=== PATIENT | female | born 1955 | race Caucasian/White ===

== ENCOUNTER 2020-05-04 07:14 | Outpatient (CLI) | payer OTHER, SELFPAY ==
--- NOTE | ~2020-05-04 | XR_ITS ---
EXAMINATION: XR ankle RT min 3V, XR foot RT min 3V EXAM DATE: 05/04/2020 07:33 INDICATION: Initial encounter following injury, with pain of the right foot, ankle. TECHNIQUE: Right foot dorsoplantar, lateral and oblique projections obtained and reviewed. Right ank le frontal, lateral and oblique projections obtained and reviewed. Comparison is made to prior examin ation from 06/10/2019. FINDINGS: Right metatarsal bones unremarkable. The right ankle mortise appears intact. Ossificati ons at the distal aspect of the medial malleolus appear well corticated, consistent with prior avulsi on injuries. There are small posterior and moderate-sized inferior calcaneal spurs. There is mild to moderate 1st metatarsophalangeal joint primary osteoarthritis. Otherwise mild scattered osteoarthriti s. There are no acute fractures or dislocations identified. There is no subcutaneous gas. The soft tissue is unremarkable. There are no radiopaque foreign bodies. IMPRESSION: 1. Right foot, ankle exam without acute osseous findings. 2. Chronic findings as above. Reviewed, dictated and finalized at location B. IMPRESSION: 1. Right foot, ankle exam without acute osseous findings. 2. Chronic findings as above.
== END 2020-05-04 07:15 | disposition home or self-care (01) ==
LOC: ANHIMG 07:19
PROVIDERS: PCP Internal Medicine; Visit Provider Internal Medicine
DX: T14.90XA Injury, unspecified, initial encounter (principal)
CPT/HCPCS: 73610; 73630

== ENCOUNTER 2020-07-30 08:19 | Emergency (ER) | payer MEDICARE, OTHER, SELFPAY ==
--- NOTE | ~2020-07-30 | CT_ITS ---
EXAMINATION: CT thoracic lumbar wo con DATE: 07/30/2020 09:26 INDICATION: Back pain. Fall. TECHNIQUE: Computed tomography (CT) of the thoracic and lumbar spine was performed without intravenou s contrast. Automated exposure control and iterative reconstruction technique were employed. The dose -length product was 1804.99 mGy-cm. COMPARISON: None FINDINGS: CT THORACIC SPINE: Calcified right hilar and mediastinal lymph nodes are consistent with old granulom atous disease. There is a small sliding hiatal hernia. Calcifications in the spleen are consistent wi th old granulomatous disease. There is 17 degrees dextroscoliosis of thoracic spine. There is mild ch ronic anterior wedging of T9-T12 vertebral bodies. There are bridging endplate osteophytes from T6 to T11, consistent with diffuse idiopathic skeletal hyperostosis (DISH). There is mildly decreased disc height at multiple levels. There is multilevel facet joint osteoarthritis, severe on the right at T3 -T4. On the right, there is mild neural foraminal stenosis at T2-T3 and T3-T4. No central canal steno sis. CT LUMBAR SPINE: Bone alignment is normal. Vertebral body heights are normal. There is mildly decreas ed disc height from L1-L2 through L3-L4 and severely decreased disc height at L4-L5 and L5-S1. The fo llowing disc levels are specifically discussed: L1-L2: The disc is bulging. There is mild right and moderate left facet joint osteoarthritis. There i s no neural foraminal stenosis. There is mild central canal stenosis. L2-L3: The disc is bulging. There is mild bilateral facet joint osteoarthritis. There is mild bilater al neural foraminal stenosis. There is mild central canal stenosis. L3-L4: The disc is bulging. There is mild bilateral facet joint osteoarthritis. There is mild bilater al neural foraminal stenosis. There is mild central canal stenosis. L4-L5: The disc is bulging. There is mild bilateral facet joint osteoarthritis. There is moderate chel ateral neural foraminal stenosis. There is mild central canal stenosis. L5-S1: The disc is bulging. There is severe bilateral facet joint osteoarthritis. There is moderate b ilateral neural foraminal stenosis. There is mild central canal stenosis. IMPRESSION: 1. No fracture. 2. Mild thoracic spondylosis and severe lumbar spondylosis. 3. Thoracic dextroscoliosis. 4. Thoracic DISH. Reviewed, dictated and finalized at location A. [employer]
--- NOTE | ~2020-07-30 | CT_ITS ---
EXAMINATION: CT brain wo con DATE: 07/30/2020 09:26 INDICATION: Neck pain. Fall. TECHNIQUE: Computed tomography (CT) of the head was performed without intravenous contrast. The mA wa s adjusted according to patient size. Iterative reconstruction technique was employed. The dose-lengt h product was 605.33 mGy-cm. COMPARISON: Head CT 06/28/2009 FINDINGS: There are scattered areas of low attenuation in the cerebral white matter. There is no intr acranial hemorrhage, acute infarction, or abnormal intracranial mass lesion. The ventricles are jaziel l in size. There is anteroposterior elongation of the ocular globes. The paranasal sinuses are clear. The mastoid air cells are normal. IMPRESSION: 1. Worsened moderate nonspecific cerebral white matter disease, which likely represents chronic small vessel ischemic disease. Reviewed, dictated and finalized at location A. ESTATE SUBAGENT IMPRESSION: 1. Worsened moderate nonspecific cerebral white matter disease, which likely re presents chronic small vessel ischemic disease.
--- NOTE | ~2020-07-30 | XR_ITS ---
EXAMINATION: XR tibia fibula LT 2V DATE: 07/30/2020 09:41 INDICATION: Left lower leg injury and pain. TECHNIQUE: 2 views of left tibia and fibula were obtained. COMPARISON: None. FINDINGS: Bone alignment is normal. There is a nondisplaced comminuted fracture of patella. There is mild left knee osteoarthritis. There enthesophytes at the posterior and plantar aspects of calcaneal tuberosity. There are enthesophytes at medial and lateral malleoli. IMPRESSION: 1. Nondisplaced comminuted fracture of patella. Reviewed, dictated and finalized at location A. UREMENT PSYCHOLOGIST
--- NOTE | ~2020-07-30 | XR_ITS ---
EXAMINATION: XR knee LT min 4V DATE: 07/30/2020 09:41 INDICATION: Left knee pain. Fall. TECHNIQUE: 4 views of left knee were obtained. COMPARISON: None. FINDINGS: Bone alignment is normal. There is a nondisplaced comminuted fracture of patella. There is mild tricompartmental osteoarthritis. There is a moderate-sized knee joint effusion. IMPRESSION: 1. Comminuted fracture of patella. 2. Mild left knee osteoarthritis. 3. Moderate-sized knee joint effusion. Reviewed, dictated and finalized at location A. E SPLITTER
--- NOTE | ~2020-07-30 | XR_ITS ---
EXAMINATION: XR chest 2V DATE: 07/30/2020 09:41 INDICATION: Chest injury. Fall. TECHNIQUE: Frontal and lateral views of the chest were obtained. COMPARISON: Chest 2 views 11/23/09 FINDINGS: The chest demonstrates clear lungs without pneumonia, pleural effusion, or pneumothorax. Th e heart size is normal. Calcified hilar and mediastinal lymph nodes are consistent with old granuloma tous disease. Surgical clips in the right upper quadrant are likely from cholecystectomy. IMPRESSION: 1. No acute cardiopulmonary disease. Reviewed, dictated and finalized at location A. NG FINISHER
--- NOTE | ~2020-07-30 | CT_ITS ---
EXAMINATION: CT cervical spine wo con DATE: 07/30/2020 09:26 INDICATION: Fall. Neck pain. TECHNIQUE: Computed tomography (CT) of the cervical spine was performed without intravenous contrast. The dose-length product was 369 mGy-cm. Automated exposure control and iterative reconstruction tech nique were employed. COMPARISON: None FINDINGS: No acute fracture, subluxation or dislocation. Odontoid process within normal limits. There is disc narrowing and endplate hypertrophy at multiple levels. There is moderate multilevel uncinate hypertrophy. Mild levocurvature of the cervical spine. No evidence for perched facet. Lung apices ar e normal. No significant paraspinal soft tissue abnormality. IMPRESSION: 1. No acute abnormality of the cervical spine. Reviewed, dictated and finalized at location A. OW UP REP
--- NOTE | ~2020-07-30 | XR_ITS ---
EXAMINATION: XR ankle RT min 3V DATE: 07/30/2020 09:41 INDICATION: Right ankle injury and pain. TECHNIQUE: 4 views of right ankle were obtained. COMPARISON: Right foot radiographs 05/12/2020 FINDINGS: Bone alignment is normal. No acute fracture. There is chronic heterotopic ossification dist al to medial malleolus. There is mild osteoarthritis of talonavicular joint and the ankle joint. Ther e are enthesophytes at the posterior and plantar aspects of calcaneal tuberosity. There is soft tissu e swelling at the Achilles tendon insertion on calcaneus. IMPRESSION: 1. Mild polyarticular osteoarthritis. 2. Cm deformity. Reviewed, dictated and finalized at location A. ITECTURE TECHNICIAN
--- NOTE | ~2020-07-30 | XR_ITS ---
XR hip LT 2V w AP pelvis 07/30/2020 09:41 INDICATION: Left hip pain after fall PROCEDURE: 3 views left hip including AP pelvis COMPARISON: No prior studies for comparison. FINDINGS: Fracture, dislocation or subluxation is not identified. Pelvic rings are intact. The soft t issues appear within normal limits. No foreign bodies are identified. IMPRESSION: 1: NO ACUTE BONE OR JOINT ABNORMALITY IDENTIFIED. Reviewed, dictated and finalized at location A. ICATION PACKAGING SPECIALIST
[2020-07-30 08:23] VITALS: BP 152/75; PULSE 57; RESP 16; TEMP 36.3; O2SAT 99
--- NOTE | 2020-07-30 08:40 | ED.FALL ---
HPI - Fall General Chief Complaint: Fall Stated Complaint: fall Time Seen by Provider: 07/30/20 08:28 Source: patient and EMS Mode of arrival: EMS Limitations: no limitations History of Present Illness HPI Narrative: Patient is a 63-year-old female who presents to the emergency department for evaluation of a ground-level fall. Patient states that she tripped in her garage after her footing got caught on a rubber mat, falling backwards and onto her left side. Patient reports pain in her upper neck, lower back, left knee and right foot. Patient states she does not think she hit her head. No prodromal symptoms such as headache, vision changes, chest pain, palpitations, lightheadedness. Patient states that she is not on any anticoagulation. Mostly her pain is in her right knee, described as dull, aching in nature, worse with movement. She denies any numbness. Related Data Home Medications Medication Instructions Recorded Confirmed ascorbic acid (vitamin C) 1,000 mg 1 gm PO DAILY 07/22/19 06/16/20 tablet aspirin 81 mg tablet,delayed 81 mg PO DAILY 07/22/19 06/16/20 release calcium carbonate-vitamin D3 600 cap PO 07/22/19 06/16/20 mg calcium-200 unit capsule cetirizine 10 mg capsule 10 mg PO DAILY 07/22/19 06/16/20 docusate sodium 100 mg capsule 100 mg PO DAILY 07/22/19 06/16/20 omeprazole magnesium 10 mg oral 10 mg PO DAILY 07/22/19 06/16/20 suspension,delayed release omega-3 fatty acids 1,000 mg 2,000 mg PO BID cap 03/18/20 06/16/20 capsule Allergies Allergy/AdvReac Type Severity Reaction Status Date / Time chlorpheniramine Allergy Mild Unknown Verified 06/16/20 08:26 dexchlorpheniramine Allergy Mild Unknown Verified 06/16/20 08:26 phenylephrine Allergy Mild Unknown Verified 06/16/20 08:26 scopolamine Allergy Mild Unknown Verified 06/16/20 08:26 metformin Allergy Unknown Unknown Verified 06/16/20 08:26 Sulfa (Sulfonamide Allergy Unknown Unknown Verified 06/16/20 08:26 Antibiotics) NONSTEROIDAL AdvReac Mild HARD ON Uncoded 06/16/20 08:26 LIVER Review of Systems Review of Systems: Narrative: CONSTITUTIONAL: Denies fever, chills, or sweats. EYES: Denies visual changes, redness, or discharge. ENT: Denies rhinorrhea, congestion, sore throat, or otalgia. CARDIOVASCULAR: Denies chest pain, palpitations, or edema. RESPIRATORY: Denies cough or dyspnea. GASTROINTESTINAL: Denies abdominal pain, nausea, vomiting, or diarrhea. GENITOURINARY: Denies dysuria or hematuria. SKIN: Denies rash or itching. MUSCULOSKELETAL: Reports upper and lower back pain, left knee pain, right foot pain, left leg pain NEUROLOGIC: Denies headache, numbness, or weakness. [facility] Past Medical History Medical History Abnormal finding of blood chemistry Acquired pes planovalgus of right foot Back pain BMI 31.0-31.9,adult BMI 33.0-33.9,adult Encounter for preventive health examination GERD (gastroesophageal reflux disease) Hammertoe of right foot Hyperlipidemia On half-way drug therapy Osteoporosis Otitis media Pes planus of both feet Plantar fasciitis, bilateral Posterior tibial tendon dysfunction (PTTD) of right lower extremity Prediabetes SVT (supraventricular tachycardia) Vitamin D deficiency Family History Family History Mother Depression Patient's mother is Cerebrovascular accident Family history of coronary artery disease Father Family history of lung cancer Patient's father is Other Diabetes mellitus Family history of arthritis Family history of malignant neoplasm Family history of malignant neoplasm of breast Social History Social History Second hand tobacco smoke exposure: No Alcohol intake: never Gender identity (if verbalized by the patient): Female Exam Narrative: Exam Narrative: Nursing note
--- NOTE | 2020-07-30 09:20 | PC.NURSE ---
PT IN CT AT THIS TIME, WILL MEDICATE AND OBTAIN LABS UPON RETURN.
[2020-07-30] MEDS: MORPHINE SULFATE (*CRX) 4 MG/ML INJ IV PUSH (09:49)
[2020-07-30] MEDS: ONDANSETRON INJ 4 MG/2 ML VIAL IV PUSH (09:51)
[2020-07-30] MEDS: SODIUM CHLORIDE 0.9% IV 500 ML 999 ML IV CONT (09:51)
[2020-07-30 10:04] LABS: Basophils Percent Auto 0.3 % (0.2-1.2); Eosinophils Absolute Auto 0.2 K/mm3 (0-0.3); Eosinophils Percent Auto 2.6 % (0-4.4); Hematocrit 37.9 % (37.0-47.0); Hemoglobin 11.9 g/dL (12.0-15.0); Immature Granulocyte Absolute 0.03 K/mm3 (0.00-0.031); Immature Granulocyte Percent A 0.3 % (0-0.5); Lymphocytes Absolute Auto 1.97 K/mm3 (0.9-3.2); Lymphocytes Percent Auto 21.5 % (18.3-44.2); Mean Corpuscular HGB Conc 31.4 g/dl (32-36); Mean Corpuscular Hemoglobin 29.9 pg (26-34); Mean Corpuscular Volume 95.2 fl (80-100); Mean Platelet Volume 11.3 fl (7.4-10.4); Monocytes Absolute Auto 0.8 K/mm3 (0.1-0.6); Monocytes Percent Auto 8.8 % (2.6-8.5); Neutrophils Absolute Auto 6.1 K/mm3 (1.3-6.7); Neutrophils Percent Auto 66.5 % (45.5-73.1); Platelet Count Result 288 k/mm3 (150-375); Red Blood Count 3.98 M/mm3 (4.2-5.4); Red Cell Distribution Width 13.1 % (11.5-14.5); White Blood Count 9.2 K/mm3 (4.5-10.0)
[2020-07-30 10:18] LABS: Anion Gap 5 mmol/L (8-16); Blood Urea Nitrogen 20 mg/dL (7-17); Calcium 9.2 mg/dL (8.4-10.2); Carbon Dioxide 29 mmol/L (22-30); Chloride 106 mmol/L (98-107); Estimated CRCL calculation 96 ml/min; Estimated Glomerular Filt Rate > 60; Glucose 93 mg/dL (65-105); Sodium 140 mmol/L (137-145)
[2020-07-30 10:34] VITALS: BP 116/75; PULSE 66; RESP 15; O2SAT 100
--- NOTE | 2020-07-30 11:00 | PC.NURSE ---
Attempted to d/c pt, pt on phone with ortho, will come back.
[2020-07-30 11:30] VITALS: BP 118/75; PULSE 72; RESP 16; O2SAT 100
== END 2020-07-30 11:31 | disposition home or self-care (01) ==
PROVIDERS: Emergency Provider Emergency Medicine; PCP Internal Medicine
DX: S82.045A Nondisplaced comminuted fracture of left patella, initial encounter for closed fracture (principal); K21.9 Gastro-esophageal reflux disease without esophagitis; E78.5 Hyperlipidemia, unspecified; M81.0 Age-related osteoporosis without current pathological fracture; M72.2 Plantar fascial fibromatosis; E55.9 Vitamin D deficiency, unspecified; R73.03 Prediabetes; M47.816 Spondylosis without myelopathy or radiculopathy, lumbar region; M47.814 Spondylosis without myelopathy or radiculopathy, thoracic region; M17.12 Unilateral primary osteoarthritis, left knee; M19.071 Primary osteoarthritis, right ankle and foot; W18.09XA Striking against other object with subsequent fall, initial encounter
CPT/HCPCS: 36415; 70450; 71046; 72125; 72128; 72131; 73502; 73564; 73590; 73610; 80048; 85025; 96361; 96374; 96375; 99284; J2270; J2405; J7040; L0140

== ENCOUNTER 2021-03-13 19:14 | Emergency (ER) | payer MEDICARE, SELFPAY ==
--- NOTE | 2021-03-13 19:19 | PC.NURSE ---
Per son cross her off your list we are taking her to [facility], its a faster response time.
--- NOTE | 2021-03-13 19:22 | PC.NURSE ---
No answer for triage at 1921.
== END 2021-03-13 19:56 | disposition left against medical advice (07) ==
LOC: ANHED 19:47
PROVIDERS: PCP Internal Medicine
DX: Z53.21 Procedure and treatment not carried out due to patient leaving prior to being seen by health care provider (principal)
CPT/HCPCS: 99199

== ENCOUNTER 2021-03-15 09:04 | Outpatient (CLI) | payer MEDICARE, SELFPAY ==
--- NOTE | ~2021-03-15 | CT_ITS ---
EXAMINATION: CTA chest PE protocol DATE: 03/15/2021 09:41 INDICATION: Shortness of breath TECHNIQUE: Computed tomography angiography (CTA) of the chest was performed with 100 mL Omnipaque-350 intravenous contrast timed to evaluate the pulmonary arteries. Coronal maximum intensity projection 3D-reconstructions were created by the technologist. The dose-length product (DLP) was 728.66 mGy-cm. Automated exposure control and iterative reconstruction technique were employed. COMPARISON: None. FINDINGS: The pulmonary arteries are well-opacified. No pulmonary embolism is identified. There is mi ld dependent atelectasis. The lungs are free of focal airspace opacities. There is no pleural effusio n or pneumothorax. The heart size is normal. Calcified pulmonary nodules and calcified mediastinal ly mph nodes are consistent with old granulomatous disease. There is a small sliding hiatal hernia. The gallbladder is surgically absent. There is a moderate-sized epigastric ventral hernia containing fat. There are bridging osteophytes at multiple levels in the spine, consistent with diffuse idiopathic s keletal hyperostosis (DISH). IMPRESSION: 1. No pulmonary embolism or acute cardiopulmonary abnormality. Reviewed, dictated and finalized at location A.
--- NOTE | ~2021-03-15 | XR_ITS ---
EXAMINATION: XR knee LT min 4V DATE: 03/15/2021 09:28 INDICATION: Left knee pain TECHNIQUE: Four views of the left knee were obtained. COMPARISON: 09/29/2020 FINDINGS: Alignment is normal. No fracture or osteochondral lesion. There is tricompartmental osteoar thritis of the knee, moderate in the medial and lateral compartments and advanced in the patellofemor al compartment. No joint effusion/synovitis. Soft tissues are unremarkable. IMPRESSION: 1. Tricompartmental osteoarthritis without acute osseous abnormality. Reviewed, dictated and finalized at location A.
--- NOTE | ~2021-03-15 | US_ITS ---
EXAMINATION: US venous doppler [facility] DATE: 03/15/2021 09:55 INDICATION: Left lower limb pain TECHNIQUE: Mota scale images without and with compression and Doppler images of the left lower extrem ity veins were obtained. COMPARISON: None FINDINGS: The left common femoral vein, profunda femoral vein, femoral vein, popliteal vein, peroneal trunk, posterior tibial veins, and greater saphenous vein are patent. IMPRESSION: 1. Patent left lower extremity veins. No evidence of deep venous thrombosis. Reviewed, dictated and finalized at location A.
[2021-03-15 09:33] LABS: Estimated Glomerular Filt Rate > 60
[2021-03-15 10:25] LABS: Hemoglobin A1C 5.3 % (<5.7)
[2021-03-15 10:28] LABS: Basophils Percent Auto 0.7 % (0.2-1.2); Eosinophils Absolute Auto 0.2 K/mm3 (0-0.3); Eosinophils Percent Auto 3.7 % (0-4.4); Hematocrit 40.8 % (37.0-47.0); Hemoglobin 12.5 g/dL (12.0-15.0); Immature Granulocyte Absolute 0.02 K/mm3 (0.00-0.031); Immature Granulocyte Percent A 0.3 % (0-0.5); Lymphocytes Absolute Auto 1.37 K/mm3 (0.9-3.2); Lymphocytes Percent Auto 23.9 % (18.3-44.2); Mean Corpuscular HGB Conc 30.6 g/dl (32-36); Mean Corpuscular Hemoglobin 29.5 pg (26-34); Mean Corpuscular Volume 96.2 fl (80-100); Mean Platelet Volume 10.8 fl (7.4-10.4); Monocytes Absolute Auto 0.5 K/mm3 (0.1-0.6); Monocytes Percent Auto 7.8 % (2.6-8.5); Neutrophils Absolute Auto 3.7 K/mm3 (1.3-6.7); Neutrophils Percent Auto 63.6 % (45.5-73.1); Platelet Count Result 221 k/mm3 (150-375); Red Blood Count 4.24 M/mm3 (4.2-5.4); Red Cell Distribution Width 13.4 % (11.5-14.5); White Blood Count 5.7 K/mm3 (4.5-10.0)
[2021-03-15 10:34] LABS: Alanine Aminotransferase 25 U/L (4-35); Albumin Level 3.9 g/dL (3.5-5.1); Alkaline Phosphatase 102 U/L (38-126); Anion Gap 7 mmol/L (8-16); Aspartate Amino Transferase 30 U/L (14-36); Bilirubin,Total 0.4 mg/dL (0.2-1.3); Blood Urea Nitrogen 16 mg/dL (7-17); Calcium 8.9 mg/dL (8.4-10.2); Carbon Dioxide 27 mmol/L (22-30); Chloride 104 mmol/L (98-107); Cholesterol 162 mg/dL (0-200); Estimated Glomerular Filt Rate > 60; Glucose 90 mg/dL (65-110); HDL Direct 72 mg/dL; Potassium 4.2 mmol/L (3.4-5.0); Sodium 138 mmol/L (137-145); Triglycerides 39 mg/dL (<150)
[2021-03-15 10:45] LABS: LDL Cholesterol Direct 74 mg/dL
[2021-03-15 10:59] LABS: Free T4 Free Thyroxine 1.01 ng/mL (0.78-2.19)
== END 2021-03-15 09:05 | disposition home or self-care (01) ==
PROVIDERS: PCP Internal Medicine; Visit Provider Internal Medicine
DX: E78.2 Mixed hyperlipidemia (principal); I47.1 Supraventricular tachycardia; R73.03 Prediabetes; Z79.899 Other long term (current) drug therapy; M79.89 Other specified soft tissue disorders; R06.02 Shortness of breath; M17.12 Unilateral primary osteoarthritis, left knee
CPT/HCPCS: 71275; 73564; 80053; 80061; 82330; 83036; 83735; 84439; 84443; 85025; 93971; Q9967

== ENCOUNTER 2021-03-16 13:24 | Outpatient (CLI) | payer MEDICARE, SELFPAY ==
--- NOTE | 2021-03-16 12:58 | ECHO_ITS ---
Patient Info Name: Jillian Masters Age: 65 years : 1955 Gender: Female Ht: 64 in Wt: 174 lbs BSA: 1.91 m2 HR: 66 bpm BP: 148 / 89 mmHg Heart Rhythm: Sinus Rhythm Exam Date: 03/16/2021 1:39 PM Exam Location: [facility] Pulmonary Patient Status: Outpatient Admit Date: 03/16/2021 Staff Ordering Physician: Ranjeet Quezada MD Package Winder: JILLIAN Attending Provider: Ranjeet Quezada MD Referring Physician: Damien LIN; Exam Type: CA echo doppler color flow Study Info Indications I47.1 - Supraventricular tachycardia Complete two-dimensional, color flow and Doppler transthoracic echocardiogram is performed. Summary 1. Complete two-dimensional, color flow and Doppler transthoracic echocardiogram is performed. 2. Left ventricular chamber dimension is normal. 3. Left ventricular systolic function is normal, estimated at 60-65%. 4. The left ventricular diastolic function is grade I diastolic dysfunction. 5. E/e' 9 is minimally elevated. 6. The mitral valve has mildly calcified annulus. 7. There is trace tricuspid valve regurgitation. 8. No pulmonary hypertension, estimated pulmonary arterial systolic pressure is 22 mmHg. Left Ventricle E/e' 9 is minimally elevated. Left ventricular chamber dimension is normal. Left ventricular systolic function is normal, estimated at 60-65%. The left ventricular diastolic function is grade I diastolic dysfunction. Right Ventricle Right ventricular chamber dimension is normal. Right ventricular systolic function is normal. Left Atria Left atrial chamber dimension is normal. Right Atria Right atrial chamber dimension is normal. Aortic Valve The aortic valve is trileaflet. There is no aortic valve stenosis. There is no aortic valve regurgitation. Pulmonic Valve There is no pulmonic regurgitation. Mitral Valve The mitral valve has mildly calcified annulus. There is no mitral valve stenosis. There is no mitral valve regurgitation. Tricuspid Valve There is trace tricuspid valve regurgitation. No pulmonary hypertension, estimated pulmonary arterial systolic pressure is 22 mmHg. Pericardium/Pleural There is no pericardial effusion. Inferior Vena Cava Normal inferior vena cava with >50% collapse upon inspiration consistent with normal right atrial pressure, 5 mmHg. Aorta The aortic root size at the sinus of Valsalva is normal. Left Ventricular Outflow Tract Name Value Normal LVOT 2D LVOT Diameter 2.0 cm LVOT Doppler LVOT Peak Gradient 7 mmHg LVOT Mean Gradient 4 mmHg LVOT VTI 28 cm LVOT VTI/AV VTI Ratio 0.9 LVOT Stroke Volume 85 ml LVOT CO 16.5 l/min LVOT CI 8.6 l/min/m2 Pulmonic Valve Name Value Normal PV Doppler
== END 2021-03-16 13:25 | disposition home or self-care (01) ==
LOC: ANHCARD 13:26
PROVIDERS: PCP Internal Medicine; Visit Provider Internal Medicine
DX: I47.1 Supraventricular tachycardia (principal)
CPT/HCPCS: 93306

== ENCOUNTER 2021-03-23 14:00 | Outpatient (CLI) | payer MEDICARE, SELFPAY ==
--- NOTE | 2021-03-31 14:14 | WPDHOLTEREM ---
Holter/Event Monitor Holter/Event Monitor Date of procedure: 03/23/21 Holter/Event Procedure: 48 Hr Holter Monitor Indications: SVT Conclusion: 1. 48 hour holter monitor on 03/23/21. 2. Underlying rhythm is sinus rhythm. HR range 33-119 bpm; average HR 70 bpm. HR at 33 bpm was at 07:43. 3. There are 19 premature supraventricular complexes. No supraventricular tachycardia. 4. No premature ventricular complexes. No ventricular tachycardia. 5. No sinoatrial or atrioventricular blocks. No significant pauses greater than 2 seconds. 6. Patient reports 1 episode of symptom of elevated heart rate and headache which demonstrate sinus rhythm at 62 bpm.
== END 2021-03-23 14:01 | disposition home or self-care (01) ==
LOC: ANHCARD 14:03
PROVIDERS: PCP Internal Medicine; Visit Provider Internal Medicine
DX: I47.1 Supraventricular tachycardia (principal)
CPT/HCPCS: 93225; 93226

== ENCOUNTER → 2021-05-27 10:03 | Outpatient (CLI) | payer MEDICARE, OTHER, SELFPAY ==
--- NOTE | ~2021-05-27 | XR_ITS ---
XR_[id number]_CR DATE: 05/27/2021 10:38 INDICATION: Right chest pain TECHNIQUE: Multiple views of left ribs and multiple views of right ribs. PA chest. COMPARISON: 07/30/2022 view chest FINDINGS: Normal heart size. There is aortic arch calcification. No hilar or mediastinal enlargement. No pulmonary infiltrate or consolidation, pleural effusion or pulmonary congestion or pneumothorax. There probably calcified right azygous and hilar and subcarinal nodes consistent with old pulmonary g ranulomatous disease. There is diffuse osteopenia. No left or right rib fractures or bone destruction are evident. Surgical clips, right upper quadrant, consistent with cholecystectomy. Diffuse idiopathic skeletal hyperostosis of the thoracic spine. IMPRESSION: No active cardiopulmonary disease Diffuse osteopenia Diffuse idiopathic skeletal hyperostosis of the thoracic spine Reviewed, dictated and finalized at Location A. Reviewed, dictated and finalized at location A.
== END ==
PROVIDERS: PCP Internal Medicine; Visit Provider Internal Medicine
DX: R07.81 Pleurodynia (principal); M48.14 Ankylosing hyperostosis [Forestier], thoracic region
CPT/HCPCS: 71111

== ENCOUNTER 2022-03-03 07:36 | Outpatient (CLI) | payer MEDICARE, SELFPAY ==
--- NOTE | ~2022-03-03 | XR_ITS ---
XR ankle RT min 3V DATE: 03/03/2022 07:54 INDICATION: Right ankle and foot pain TECHNIQUE: 4 views COMPARISON: None FINDINGS: Mild osteoarthritic change at the tibiotalar joint. Osteopenia. No fracture or dislocation of the ankle or disruption of the ankle mortise. No periosteal reaction or bone destruction. Distal Achilles tendon calcification and posterior and particularly prominent plantar calcaneal enthe sopathy. IMPRESSION: Mild tibiotalar osteoarthritis Plantar and posterior calcaneal enthesopathy and distal Achilles tendon calcification Reviewed, dictated and finalized at location B. IMPRESSION: Mild tibiotalar osteoarthritis Plantar and posterior calcaneal enthesopathy and distal Achilles tendon calcifi cation
--- NOTE | ~2022-03-03 | XR_ITS ---
XR foot RT min 3V DATE: 03/03/2022 07:54 INDICATION: Right ankle and foot pain TECHNIQUE: 4 views COMPARISON: None FINDINGS: Osteopenia. There is mild osteoarthritic change at the tibiotalar joint. There is osteophytic change at the first tarsometatarsal and first metatarsophalangeal joints. Prominent plantar calcaneal enthesopathy. Posterior calcaneal enthesopathy and distal Achilles tendon calcification. No fracture, dislocation, periosteal reaction or bone destruction. IMPRESSION: Osteopenia Polyarticular osteoarthritis Plantar posterior calcaneal enthesopathy and distal Achilles tendon calcification Reviewed, dictated and finalized at location B. IMPRESSION: Osteopenia Polyarticular osteoarthritis Plantar posterior calcaneal enthesopathy and distal Achilles tendon calcificati on
== END 2022-03-03 07:37 | disposition home or self-care (01) ==
PROVIDERS: PCP Internal Medicine; Visit Provider Internal Medicine
DX: M79.89 Other specified soft tissue disorders (principal); M79.674 Pain in right toe(s); M25.471 Effusion, right ankle; M25.571 Pain in right ankle and joints of right foot; M85.871 Other specified disorders of bone density and structure, right ankle and foot; M19.071 Primary osteoarthritis, right ankle and foot; M77.31 Calcaneal spur, right foot
CPT/HCPCS: 73610; 73630

== ENCOUNTER 2022-04-24 12:43 | Outpatient (CLI) | payer MEDICARE, SELFPAY ==
--- NOTE | ~2022-04-24 | CT_ITS ---
EXAMINATION: CT diagnostic chest w con DATE: 04/24/2022 13:28 INDICATION: Shortness of breath TECHNIQUE: Transaxial computed tomographic images of the chest were obtained after the administration of 75 cc of Omnipaque 350 intravenous contrast. The dose-length product (DLP) was 714.83 mGy-cm. Ite rative reconstruction was used. COMPARISON: 03/15/2021 FINDINGS: The lungs are free of acute opacities. No pleural effusion or pneumothorax. Calcified pulmo nary nodules and calcified mediastinal lymph nodes are consistent with old granulomatous disease. No pleural effusion or pneumothorax. No pathologically enlarged thoracic lymph nodes are identified. The heart size is normal. There is an epigastric ventral hernia containing fat. A small sliding hiatal h ernia is noted. Punctate calcifications in an otherwise normal spleen likely represent healed granulo matous disease. There are bridging osteophytes at multiple levels in the spine, consistent with diffu se idiopathic skeletal hyperostosis (DISH). IMPRESSION: 1. No acute cardiopulmonary abnormality. Reviewed, dictated and finalized at location B.
[2022-04-24 13:12] LABS: Basophils Absolute Auto 0.1 K/mm3 (0.0-0.1); Basophils Percent Auto 0.8 % (0.2-1.2); Eosinophils Absolute Auto 0.2 K/mm3 (0-0.3); Eosinophils Percent Auto 3.1 % (0-4.4); Hematocrit 40.4 % (37.0-47.0); Hemoglobin 12.8 g/dL (12.0-15.0); Immature Granulocyte Absolute 0.02 K/mm3 (0.00-0.031); Immature Granulocyte Percent A 0.3 % (0-0.5); Lymphocytes Absolute Auto 1.21 K/mm3 (0.9-3.2); Lymphocytes Percent Auto 15.6 % (18.3-44.2); Mean Corpuscular HGB Conc 31.7 g/dl (32-36); Mean Corpuscular Hemoglobin 29.4 pg (26-34); Mean Corpuscular Volume 92.7 fl (80-100); Mean Platelet Volume 10.8 fl (7.4-10.4); Monocytes Absolute Auto 0.7 K/mm3 (0.1-0.6); Monocytes Percent Auto 9.3 % (2.6-8.5); Neutrophils Absolute Auto 5.5 K/mm3 (1.3-6.7); Neutrophils Percent Auto 70.9 % (45.5-73.1); Platelet Count Result 252 k/mm3 (150-375); Red Blood Count 4.36 M/mm3 (4.2-5.4); Red Cell Distribution Width 13.3 % (11.5-14.5); White Blood Count 7.8 K/mm3 (4.5-10.0)
[2022-04-24 13:22] LABS: Estimated Glomerular Filt Rate > 60
[2022-04-24 13:23] LABS: Anion Gap 12 mmol/L (8-16); Blood Urea Nitrogen 16 mg/dL (7-17); Calcium 8.9 mg/dL (8.4-10.2); Carbon Dioxide 27 mmol/L (22-30); Chloride 103 mmol/L (98-107); Estimated Glomerular Filt Rate > 60; Glucose 114 mg/dL (65-110); Magnesium 2.1 mg/dL (1.6-2.3); Potassium 4.3 mmol/L (3.4-5.0); Sodium 142 mmol/L (137-145)
[2022-04-24 13:32] LABS: NT Pro B Type Natriuretic Pept 89 pg/mL (5-100)
== END 2022-04-24 12:44 | disposition home or self-care (01) ==
PROVIDERS: PCP Internal Medicine; Visit Provider Internal Medicine
DX: R06.00 Dyspnea, unspecified (principal); R06.02 Shortness of breath; R07.89 Other chest pain; R53.83 Other fatigue; I47.1 Supraventricular tachycardia; Z79.899 Other long term (current) drug therapy
CPT/HCPCS: 36415; 71260; 80048; 83735; 83880; 85025; Q9967

== ENCOUNTER 2022-05-10 09:06 | Outpatient (CLI) | payer MEDICARE, SELFPAY ==
--- NOTE | 2022-05-10 13:39 | WPDPFTINT ---
PFT Procedure Performed PFT Procedure Performed Spirometry with Pre/Post Bronchodilator Plethysmography (Lung Vol) Diffusing Cap (DLCO) Flow Vol Loop PFT Interpretation This is a pulmonary function test with pre and post-bronchodilator spirometry, plethysmography and diffusing capacity. The test was performed and results interpreted in accordance with the 2019 and 2005 ATS/ERS Task Force guidelines respectively using the Global Lung Function Initiative-2012 reference equations. Patient demonstrated good effort and cooperation. Reproducibility criteria were met. The quality of the pre bronchodilator spirometry maneuver was Grade A and post bronchodilator spirometry maneuver was Grade A. Findings: Spirometry: The contour the inspiratory and expiratory flow tracing are normal. The pre bronchodilator FVC is 2.56 L, 70% predicted. The pre bronchodilator FEV1 is 2.00 L, 70% predicted. The pre bronchodilator FEV1: FVC ratio 78%. The post bronchodilator FVC is 2.47 L, representing a 4% decrease. The post bronchodilator FEV1 is 2.00 L, representing no change. The post bronchodilator FEV1: FVC ratio was 81%. Plethysmography: The total lung capacity is 4.63 L, 77% predicted. The functional residual capacity is 2.66 L, 86% predicted. The residual volume is 2.06 L, 99% predicted. Diffusing capacity: The diffusing capacity unadjusted for hemoglobin and carboxyhemoglobin is 11.4, 46% predicted. The diffusing capacity adjusted for alveolar volume is 3.82, 88% predicted. Impression: The spirometry is normal without evidence of an obstructive abnormality. The lung volumes are normal without evidence of and restrictive abnormality. The FVC and FEV1 are mildly decreased without an obstructive or restrictive abnormality. This is an abnormal but nonspecific finding. There is no significant improvement after inhaling a single dose of albuterol. The diffusing capacity unadjusted for hemoglobin and carboxyhemoglobin is moderately decreased and normalizes when adjusted for alveolar volume. There are no prior studies for comparison
== END 2022-05-10 09:07 | disposition home or self-care (01) ==
PROVIDERS: PCP Internal Medicine; Visit Provider Internal Medicine
DX: R06.09 Other forms of dyspnea (principal)
CPT/HCPCS: 94060; 94726; 94729

== ENCOUNTER 2023-02-08 14:34 | Outpatient (CLI) | payer MEDICARE, SELFPAY ==
--- NOTE | 2023-02-08 16:18 | WPDPFTINT ---
PFT Procedure Performed PFT Procedure Performed Spirometry with Pre/Post Bronchodilator Plethysmography (Lung Vol) Diffusing Cap (DLCO) Flow Vol Loop PFT Interpretation This is a pulmonary function test with spirometry, plethysmography and diffusing capacity. The test was performed and results interpreted in accordance with the 2019 and 2005 ATS/ERS Task Force guidelines respectively using the Global Lung Function Initiative-2012 reference equations. Patient demonstrated good effort and cooperation. Reproducibility criteria were met. The quality of the spirometry maneuver was Grade A. Findings: Spirometry: The contour the inspiratory and expiratory flow tracing are normal. The FVC is 2.34 L, 79% predicted. The FEV1 is 1.88 L, 81% predicted. The FEV1: FVC ratio was 80%. Plethysmography: The total lung capacity is 4.17 L, 82% predicted. The functional residual capacity is 1.98 L, 68% predicted. The residual volume is 1.61 L, 76% predicted. Diffusion capacity: The diffusing capacity unadjusted for hemoglobin and carboxyhemoglobin is 12.0, 57% predicted. The diffusing capacity adjusted for alveolar volume is 3.37, 78% predicted. In comparison to previous pulmonary function testing performed on 05/10/2022 the FVC is unchanged from 2.56 L to 2.34 L. The FEV1 is unchanged from 2.00 L to 1.88 L. The total lung capacity is unchanged from 4.63 L to 4.17 L. Functional residual capacity is decreased from 2.66 L to 1.98 L. The residual volume is decreased from 2.06 L to 1.61 L. The diffusing capacity unadjusted for hemoglobin and carboxyhemoglobin is unchanged from 11.4 to 12.0. Diffusing capacity adjusted for alveolar volume is unchanged from 3.82 to 3.37. Impression: The spirometry is normal without evidence of an obstructive abnormality. The lung volumes are normal. The diffusing capacity unadjusted for hemoglobin and carboxyhemoglobin is moderately decreased and normalizes when adjusted for alveolar volume. In comparison to previous pulmonary function test on 05/10/2022 there has been a greater than anticipated time dependent decrease in the functional residual capacity and residual volume with no significant change in the FVC, FEV1, total lung capacity, or diffusing capacity. Clinical correlation is recommended.
== END 2023-02-08 14:35 | disposition home or self-care (01) ==
LOC: ANHPFT 14:34
PROVIDERS: PCP Internal Medicine; Visit Provider Internal Medicine Cardiovascular Disease
DX: R06.02 Shortness of breath (principal)
CPT/HCPCS: 94375; 94726; 94729

== ENCOUNTER 2024-02-11 15:59 | Outpatient (CLI) | payer MEDICARE, SELFPAY | END 2024-02-11 16:00 | disposition home or self-care (01) | PROVIDERS: PCP Internal Medicine; Visit Provider Internal Medicine | DX: R05.3 Chronic cough (principal) | CPT/HCPCS: 87081 ==

== ENCOUNTER 2024-02-12 10:58 | Outpatient (CLI) | payer MEDICARE, SELFPAY ==
--- NOTE | ~2024-02-12 | XR_ITS ---
EXAMINATION: XR chest 2V DATE: 02/12/2024 11:36 INDICATION: Personal history of COVID-19. TECHNIQUE: Frontal and lateral views of the chest were obtained. COMPARISON: Chest 2 views 07/30/2020 FINDINGS: There is no pneumonia, pleural effusion, or pneumothorax. The heart size is normal. Calcifi ed hilar mediastinal lymph nodes are consistent with old granulomatous disease. Surgical clips in the right upper quadrant are likely from cholecystectomy. IMPRESSION: 1. No acute cardiopulmonary disease. Reviewed, dictated and finalized at location A.
[2024-02-12 11:20] LABS: Basophils Percent Auto 0.5 % (0.2-1.2); Eosinophils Absolute Auto 0.2 K/mm3 (0-0.3); Eosinophils Percent Auto 3.2 % (0-4.4); Hematocrit 41.7 % (37.0-47.0); Hemoglobin 12.9 g/dL (12.0-15.0); Immature Granulocyte Absolute 0.03 K/mm3 (0.00-0.031); Immature Granulocyte Percent A 0.4 % (0-0.5); Lymphocytes Absolute Auto 1.72 K/mm3 (0.9-3.2); Lymphocytes Percent Auto 23.6 % (18.3-44.2); Mean Corpuscular HGB Conc 30.9 g/dl (32-36); Mean Corpuscular Hemoglobin 29.1 pg (26-34); Mean Corpuscular Volume 93.9 fl (80-100); Mean Platelet Volume 10.9 fl (7.4-10.4); Monocytes Absolute Auto 0.8 K/mm3 (0.1-0.6); Monocytes Percent Auto 11.3 % (2.6-8.5); Neutrophils Absolute Auto 4.4 K/mm3 (1.3-6.7); Platelet Count Result 283 k/mm3 (150-375); Red Blood Count 4.44 M/mm3 (4.2-5.4); Red Cell Distribution Width 12.9 % (11.5-14.5); White Blood Count 7.3 K/mm3 (4.5-10.0)
== END 2024-02-12 10:59 | disposition home or self-care (01) ==
PROVIDERS: PCP Internal Medicine; Visit Provider Internal Medicine
DX: R05.9 Cough, unspecified (principal); Z86.16 Personal history of COVID-19
CPT/HCPCS: 36415; 71046; 85025

== ENCOUNTER 2024-07-21 22:08 | Emergency (ER) | payer MEDICARE, SELFPAY ==
--- NOTE | 2024-07-21 22:09 | ECG_ITS ---
Test Date: 2024-07-21 22:13:26 Measurements Intervals [place] Rate: 193 P: 0 MS: 0 QRS: 50 QRSD: 92 T: 66 QT: 239 QTc: 429 Interpretive Statements SUPRAVENTRICULAR TACHYCARDIA No previous ECG available for comparison Electronically Signed On 07-22-2024 14:52:29 [employer] MAINFRAME SYSTEMS PROGRAMMER by Le Morales M.D.
[2024-07-21 22:18] VITALS: PULSE 189
[2024-07-21] MEDS: ADENOSINE IV SOLN 6 MG/2 ML VIAL IV PUSH (22:25)
[2024-07-21 22:27] VITALS: PULSE 110
[2024-07-21 22:34] LABS: Basophils Absolute Auto 0.1 K/mm3 (0.0-0.1); Basophils Percent Auto 0.7 % (0.2-1.2); Eosinophils Absolute Auto 0.3 K/mm3 (0-0.3); Eosinophils Percent Auto 3.1 % (0-4.4); Hematocrit 42.5 % (37.0-47.0); Hemoglobin 13.9 g/dL (12.0-15.0); Immature Granulocyte Absolute 0.02 K/mm3 (0.00-0.031); Immature Granulocyte Percent A 0.2 % (0-0.5); Lymphocytes Absolute Auto 2.51 K/mm3 (0.9-3.2); Lymphocytes Percent Auto 27.3 % (18.3-44.2); Mean Corpuscular HGB Conc 32.7 g/dl (32-36); Mean Corpuscular Hemoglobin 29.9 pg (26-34); Mean Corpuscular Volume 91.4 fl (80-100); Mean Platelet Volume 11.4 fl (7.4-10.4); Monocytes Percent Auto 11.2 % (2.6-8.5); Neutrophils Absolute Auto 5.3 K/mm3 (1.3-6.7); Neutrophils Percent Auto 57.5 % (45.5-73.1); Platelet Count Result 270 k/mm3 (150-375); Red Blood Count 4.65 M/mm3 (4.2-5.4); Red Cell Distribution Width 13.2 % (11.5-14.5); White Blood Count 9.2 K/mm3 (4.5-10.0)
--- NOTE | 2024-07-21 22:40 | ED.ARRPALP ---
HPI - Arrhythmia/Palpitations General Chief Complaint: Arrhythmia/Palpitations <KATTY Foss Last Filed: 07/22/24 02:17> Stated Complaint: heart rate 188 at home <KATTY Foss Last Filed: 07/22/24 02:17> Time Seen by Provider: 07/21/24 22:15 <KATTY Foss Last Filed: 07/22/24 02:17> Source: patient and old records reviewed <KATTY Foss Last Filed: 07/22/24 02:17> Mode of arrival: ambulatory <KATTY Foss Last Filed: 07/22/24 02:17> Limitations: no limitations <KATTY Foss Last Filed: 07/22/24 02:17> History of Present Illness HPI narrative: Patient is a 69 y/o female, with PMH of SVT s/p ablation in 2021, who presents to the ED with c/o palpitations. Patient reports she developed with racing heart palpitations around 7:00 p.m. tonight. Began having some left sided chest discomfort/tightness. Prompted here for further evaluation. Patient reports history of previous SVT. States she has not had episode in the past 2 years since her cardiac ablation. About 2 weeks ago, she saw her airborne weapons technical manager and had an echocardiogram and heart monitor performed which were normal. She was taken off her sotalol at that time. Patient is unsure of her sotalol dose. Denies shortness of breath. Sees Dr Alvarez with electrophysiology, Dr. Krishnamurthy with Cardiology <KATTY Foss Last Filed: 07/22/24 02:17> Related Data Home Medications: Home Medications ?Medication ?Instructions ?Recorded ?Confirmed ?Last Taken ?Type omeprazole magnesium 10 mg oral 10 mg PO DAILY 07/22/19 02/12/24 Unknown History suspension,delayed release (Prilosec) omega-3 fatty acids 1,000 mg 2,000 mg PO BID 03/18/20 02/12/24 Unknown History capsule multivitamin with minerals 1 tablet PO DAILY 04/06/21 02/12/24 Unknown History (Hair,Skin and Nails tablet) magnesium 200 mg tablet 400 mg PO BID 04/24/22 02/12/24 Unknown History isosorbide mononitrate 30 mg 30 mg PO DAILY 05/01/22 02/12/24 Unknown History tablet,extended release 24 hr sotalol 80 mg tablet 40 mg PO BID 03/28/23 02/12/24 Unknown History <Edna Sepulveda PA-C - Last Filed: 07/22/24 02:17> Allergies/Adverse Reactions: Allergies Allergy/AdvReac Type Severity Reaction Status Date / Time chlorpheniramine Allergy Mild Unknown Verified 02/12/24 10:09 dexchlorpheniramine Allergy Mild Unknown Verified 02/12/24 10:09 phenylephrine Allergy Mild Unknown Verified 02/12/24 10:09 scopolamine Allergy Mild Unknown Verified 02/12/24 10:09 metformin Allergy Unknown Unknown Verified 02/12/24 10:09 Sulfa (Sulfonamide Allergy Unknown Unknown Verified 02/12/24 10:09 Antibiotics) NONSTEROIDAL AdvReac Mild HARD ON Uncoded 02/12/24 10:09 LIVER <Edna Sepulveda PA-C - Last Filed: 07/22/24 02:17> Review of Systems Review of Systems: All systems reviewed & are unremarkable except as noted in HPI. <Edna Sepulveda PA-C - Last Filed: 07/22/24 02:17> All systems reviewed & are unremarkable except as noted in HPI and below <Edna Sepulveda PA-C - Last Filed: 07/22/24 02:17> [facility] Past Medical History Medical History: Medical History Abnormal diagnostic test result Abnormal finding of blood chemistry Acquired pes planovalgus of right foot Anxiety Arthritis of ankle, right Arthritis of right foot Back pain BMI 27.0-27.9,adult BMI 30.0-30.9,adult BMI 31.0-31.9,adult BMI 32.0-32.9,adult BMI 36.0-36.9,adult BMI 37.0-37.9, adult Body mass index (BMI) 40.0-44.9, adult Body mass index [BMI] 40.0-44.9, adult (04/01/19) Breast pain, left Ear pain, right Encounter for Medicare annual wellness exam Encounter for preventive health examination Encounter for routine adult health examination without abnormal findings Fatigue Fracture of medial malleolus, left, closed GERD (gastroesophageal reflux disease) Hammertoe of right foot Hyperlipidemia Left foot pain Left knee pain Left leg swelling Left patella fracture 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 JOY on CPAP Osteoporosis Other chronic pain Otitis media Pain in left ankle and joints of left foot Pain of left calf Pedal edema Personal history of COVID-19 Pes planus of both feet Plantar fasciitis, bilateral Posterior tibial tendon dysfunction (PTTD) of right lower extremity Pre-operative clearance Prediabetes Right knee pain Shortness of breath SVT (supraventricular tachycardia) Vitamin D deficiency White matter disease <Edna Sepulveda PA-C - Last Filed: 07/22/24 02:17> Surgical History Surgical History: Surgical History H/O cardiac radiofrequency ablation History of cardiac cath <Edna Sepulveda PA-C - Last Filed: 07/22/24 02:17> Family History Family History: Family History Mother Depression Patient's mother is Cerebrovascular accident Family history of coronary artery disease Father Family history of lung cancer Patient's father is Other Diabetes mellitus Family history of arthritis Family history of malignant neoplasm Family history of malignant neoplasm of breast <Edna Sepulveda PA-C - Last Filed: 07/22/24 02:17> Social History Social History: Social History Smoking status: Never smoker Second hand tobacco smoke exposure: No Alcohol intake: never Lack of Transportation: No Lack of Food: Never True Current Housing: I Have Housing Concerned About Future Housing: No Difficulty Paying Gas/Electric Bills: No Difficulty Paying for Meds: No Currently Unemployed: No Education: Master's Degree or Higher Difficulty w/ Childcare or Family Care: No Living arrangements: with family Gender identity (if verbalized by the patient): Female <Edna Sepulveda PA-C - Last Filed: 07/22/24 02:17> Exam Narrative: GENERAL: Mildly anxious and ill appearing, well-nourished, non-toxic, in no acute distress. HEAD: Normocephalic, atraumatic. RESPIRATORY: Airway patent, respirations nonlabored. Clear to auscultation bilaterally, no rales, rhonchi, wheezing. No focal lung sounds. CARDIOVASCULAR: Severe tachycardia with rhythm without murmurs, rubs, or gallops. MUSCULOSKELETAL: Moves all extremities. No gross deformities. No peripheral edema. SKIN: Warm, dry, normal color. NEURO: A&O X3. Speech clear. Cranial nerves II-XII grossly intact. Steady gait. No ataxic movements. PSYCHIATRIC: Anxious, tearful. Normal interaction. <Edna Sepulveda PA-C - Last Filed: 07/22/24 02:17> Course [employer] DISTRIBUTOR/PA Physician Supervision I agree with midlevel documentation; I performed the medical decision making component of this evaluation. I had independent yquy-[id number] time with the patient and performed my own independent evaluation and assessment. patient initially seen with a triage EKG of SVT and brought back to room 1 in the emergency department. Placed on a continuous pulse oximetry and bootmaker and cardiac pads up to a Zoll. SVT on the monitors. Patient denying any chest pain or shortness of breath. Awake alert oriented answers all questions appropriately. Endorsing recently stopping her sotalol medication several weeks ago but did have a previous cardiac ablation for her SVT. Multiple IVs were established she was given 6 mg of intravenous adenosine with a rapid saline flush thereafter which did convert her to normal sinus rhythm. no ectopy on the monitor, blood pressure remained stable without any concerns. patient observed here in the emergency department for any recurrence and cardiac workup was ordered this time. Please see remaining dictation by midlevel provider for continued care in final disposition. <Vlad Rodgers MD - Last Filed: 07/22/24 23:14> Vital Signs Vital signs: Vital Signs Pulse Rate 189 H 07/21/24 22:18 Pulse Rate 94 07/22/24 00:02 Respiratory Rate 17 07/22/24 00:02 Blood Pressure 146/86 H 07/22/24 00:02 Pulse Oximetry 97 12/10/24 00:02 <Edna Sepulveda PA-C - Last Filed: 07/22/24 02:17> Vital Signs Pulse Rate 189 H 07/21/24 22:18 Pulse Rate 94 07/22/24 00:02 Respiratory Rate 17 07/22/24 00:02 Blood Pressure 146/86 H 07/22/24 00:02 Pulse Oximetry 97 07/22/24 00:02 <Vlad Rodgers MD - Last Filed: 07/22/24 23:14> MDM - Arrhythmia/Palpitations MDM Narrative Medical decision making narrative: Patient presented to ED with several hour onset of palpitations. History of SVT. History of cardiac ablation in the past. Has not had episode of SVT in past 2 years since ablation. Was taken off of her sotalol medication 2 weeks ago. EKG from triage showing SVT, rates in the 190s. Patient was immediately brought back to ED room where I was notified. Patient otherwise stable upon arrival. Reporting some slight left-sided chest tightness, but denying pain or shortness of breath. Attempted modified Valsalva maneuver x2 without improvement of heart rate. Patient was placed on bootmaker pads and decision was made to give adenosine. Adenosine 6 mg was administered. Patient did have appropriate pause before converting into normal sinus rhythm. Continuous EKG was obtained throughout this intervention. Rates now in the 100s. Patient feeling much better. Patient was given fluids and monitored in the ED for at least 1 additional hour without recurrence of SVT. BP remained stable. Patient denying any further concerns. Resting comfortably and chatting with family members. Laboratory studies are unremarkable. Stable electrolytes. Troponin is undetectable. Given patient's previous history of this, I do feel she is safe for discharge home with close follow-up with her retail services professional and airborne weapons technical manager. Patient is in agreement with this plan. She would prefer to go home. I do feel patient will require some rate-controlling medication to prevent further episodes as she seemingly failed trial off the sotalol. Given that patient has only been off of her sotalol for less than 2 weeks, feel it is appropriate to resume this medication. Patient is unsure of her dosage, but does have the prescription at home. I have recommended that patient resume her sotalol tonight and contact her cardiologists first thing tomorrow morning. Patient was given strict return precautions should symptoms recur or worsen or she develops chest pain or difficulty breathing. She is in agreement with this plan, voiced understanding of return precautions. Discharged in stable condition. Vital signs stable at time of D/C. <Edna Sepulveda PA-C - Last Filed: 07/22/24 02:17> Medical Records Attestation: I reviewed the patient's medical records. <Edna Sepulveda PA-C - Last Filed: 07/22/24 02:17> Lab Data Attestation: I reviewed the patient's lab results. <Edna Sepulveda PA-C - Last Filed: 07/22/24 02:17> Result diagrams: 07/21/24 22:22 07/21/24 22:22 <Edna Sepulveda PA-C - Last Filed: 07/22/24 02:17> Labs: Lab Results 07/21/24 Range/Units 22:22 WBC 9.2 (4.5-10.0) K/mm3 RBC 4.65 (4.2-5.4) M/mm3 Hgb 13.9 (12.0-15.0) g/dL Hct 42.5 (37.0-47.0) % MCV 91.4 (80-100) fl MCH 29.9 (26-34) pg MCHC 32.7 (32-36) g/dl RDW 13.2 (11.5-14.5) % Plt Count 270 (150-375) k/mm3 MPV 11.4 H (7.4-10.4) fl Immature Gran % (Auto) 0.2 (0-0.5) % Neut % (Auto) 57.5 (45.5-73.1) % Lymph % (Auto) 27.3 (18.3-44.2) % Craig % (Auto) 11.2 H (2.6-8.5) % Eos % (Auto) 3.1 (0-4.4) % Baso % (Auto) 0.7 (0.2-1.2) % Lymph # (Auto) 2.51 (0.9-3.2) K/mm3 Craig # (Auto) 1.0 H (0.1-0.6) K/mm3 Eos # (Auto) 0.3 (0-0.3) K/mm3 Baso # (Auto) 0.1 (0.0-0.1) K/mm3 Abs Immat Gran (auto) 0.02 (0.00-0.031) K/mm3 Absolute Neuts (auto) 5.3 (1.3-6.7) K/mm3 Absolute Nucleated RBC 0.000 (0.0-0.012) K/mm3 Nucleated RBC % 0.0 (0.0-0.2) % PT 13.0 (11.1-14.7) Seconds INR 1.0 APTT 29.7 (22.3-36.8) Seconds Sodium 138 (137-145) mmol/L Potassium 3.9 (3.4-5.0) mmol/L Chloride 108 H (98-107) mmol/L Carbon Dioxide 23 (22-30) mmol/L Anion Gap 7 (4-12) mmol/L BUN 17 (7-17) mg/dL Creatinine 0.70 (0.7-1.0) mg/dL Estim Creat Clear Calc Not Reportable Estimated GFR > 60 (59 - ) Glucose 144 H (65-110) mg/dL Calcium 9.2 (8.4-10.2) mg/dL Magnesium 2.2 (1.6-2.3) mg/dL Total Bilirubin 0.5 (0.2-1.3) mg/dL AST 33 (14-36) U/L ALT 23 (6-35) U/L Alkaline Phosphatase 83 (38-126) U/L Troponin I < 0.012 (0.000-0.034) ng/mL Total Protein 8.0 (6.3-8.2) g/dL Albumin 4.3 (3.5-5.1) g/dL <Edna Sepulveda PA-C - Last Filed: 07/22/24 02:17> Lab Results 07/21/24 Range/Units 22:22 WBC 9.2 (4.5-10.0) K/mm3 RBC 4.65 (4.2-5.4) M/mm3 Hgb 13.9 (12.0-15.0) g/dL Hct 42.5 (37.0-47.0) % MCV 91.4 (80-100) fl MCH 29.9 (26-34) pg MCHC 32.7 (32-36) g/dl RDW 13.2 (11.5-14.5) % Plt Count 270 (150-375) k/mm3 MPV 11.4 H (7.4-10.4) fl Immature Gran % (Auto) 0.2 (0-0.5) % Neut % (Auto) 57.5 (45.5-73.1) % Lymph % (Auto) 27.3 (18.3-44.2) % Craig % (Auto) 11.2 H (2.6-8.5) % Eos % (Auto) 3.1 (0-4.4) % Baso % (Auto) 0.7 (0.2-1.2) % Lymph # (Auto) 2.51 (0.9-3.2) K/mm3 Craig # (Auto) 1.0 H (0.1-0.6) K/mm3 Eos # (Auto) 0.3 (0-0.3) K/mm3 Baso # (Auto) 0.1 (0.0-0.1) K/mm3 Abs Immat Gran (auto) 0.02 (0.00-0.031) K/mm3 Absolute Neuts (auto) 5.3 (1.3-6.7) K/mm3 Absolute Nucleated RBC 0.000 (0.0-0.012) K/mm3 Nucleated RBC % 0.0 (0.0-0.2) % PT 13.0 (11.1-14.7) Seconds INR 1.0 APTT 29.7 (22.3-36.8) Seconds Sodium 138 (137-145) mmol/L Potassium 3.9 (3.4-5.0) mmol/L Chloride 108 H (98-107) mmol/L Carbon Dioxide 23 (22-30) mmol/L Anion Gap 7 (4-12) mmol/L BUN 17 (7-17) mg/dL Creatinine 0.70 (0.7-1.0) mg/dL Estim Creat Clear Calc Not Reportable Estimated GFR > 60 (59 - ) Glucose 144 H (65-110) mg/dL Calcium 9.2 (8.4-10.2) mg/dL Magnesium 2.2 (1.6-2.3) mg/dL Total Bilirubin 0.5 (0.2-1.3) mg/dL AST 33 (14-36) U/L ALT 23 (6-35) U/L Alkaline Phosphatase 83 (38-126) U/L Troponin I < 0.012 (0.000-0.034) ng/mL Total Protein 8.0 (6.3-8.2) g/dL Albumin 4.3 (3.5-5.1) g/dL <Vlad Rodgers MD - Last Filed: 07/22/24 23:14> ECG Data EKG #1: Attestation: I personally reviewed and interpreted this ECG as follows: <Edna Sepulveda PA-C - Last Filed: 07/22/24 02:17> ECG completion date: 07/21/24 <Edna Sepulveda PA-C - Last Filed: 07/22/24 02:17> ECG completion time: 22:13 <Edna Sepulveda PA-C - Last Filed: 07/22/24 02:17> EKG Interpretation: tachycardia (193), sinus rhythm, SVT and non-specific ST changes <Edna Sepulveda PA-C - Last Filed: 07/22/24 02:17> Critical Care Time Critical Care Time Critical Care Time: Yes <Vlad Rodgers MD - Last Filed: 07/22/24 23:14> Total Critical Care Time: 30 <Vlad Rodgers MD - Last Filed: 07/22/24 23:14> Discharge Plan Discharge Clinical Impression: SVT (supraventricular tachycardia) <Edna Sepulveda PA-C - Last Filed: 07/22/24 02:17> Patient Disposition: Home, Self-Care <Edna Sepulveda PA-C - Last Filed: 07/22/24 02:17> Condition: Stable <Edna Sepulveda PA-C - Last Filed: 07/22/24 02:17> Instructions: Antibiotic Form, Supraventricular Tachycardia (ED), Heart Palpitations (ED) <Edna Sepulveda PA-C - Last Filed: 07/22/24 02:17> Additional Instructions: You were found to be an SVT today. You were given adenosine to get you back to a normal rhythm. Recommend resuming Sotalol tonight. Take this as previously prescribed. Follow-up closely with your primary care doctor, airborne weapons technical manager, retail services professional for further evaluation and management of arrhythmia. Return to the ED if you experience recurrent symptoms, palpitations, chest pain, difficulty breathing, unable to keep down food or drink, fevers, or any other symptoms of concern. <Edna Sepulveda PA-C - Last Filed: 07/22/24 02:17> Patient Language: Sami <Edna Sepulveda PA-C - Last Filed: 07/22/24 02:17> Prescriptions: No Action multivitamin with minerals [Hair,Skin and Nails] Tablet 1 tablet PO DAILY nystatin-triamcinolone 100,000-0.1 unit/g-% cream 1 applic topical BID Qty: 30 2RF Rx Instructions: apply to affected area BID magnesium 200 mg tablet 400 mg PO BID Prilosec 10 mg susp,delayed release for recon 10 mg PO DAILY omega-3 fatty acids 1,000 mg capsule 2,000 mg PO BID sotalol 80 mg tablet 40 mg PO BID alprazolam 0.25 mg tablet 0.25 mg PO TID PRN (Reason: anxiety) Qty: 20 0RF doxycycline hyclate 100 mg tablet 100 mg PO BID Qty: 20 0RF prednisone 20 mg tablet 40 mg PO DAILY Qty: 10 0RF docusate sodium [Colace] 100 mg capsule 100 mg PO DAILY 15 Days Qty: 15 0RF isosorbide mononitrate 30 mg tablet extended release 24 hr 30 mg PO DAILY ascorbic acid (vitamin C) 1,000 mg tablet 1 g PO DAILY Qty: 30 0RF Restasis MultiDose 0.05 % drops 1 drp EACH EYE Q12H Qty: 5.5 0RF cetirizine 10 mg capsule 10 mg PO DAILY Qty: 500 1RF Calcium 600 + D(3) 600 mg-5 mcg (200 unit) capsule 1 cap PO DAILY Qty: 30 0RF fluticasone propionate 50 mcg/actuation spray,suspension See Rx Instructions .ROUTE .COMPLEX Qty: 48 4RF Dose Instruction: USE 2 SPRAYS IN BOTH NOSTRILS DAILY Rx Instructions: USE 2 SPRAYS IN BOTH NOSTRILS DAILY scopolamine base 1 mg over 3 days patch 3 day 1 patch transdermal Q3D PRN (Reason: motion sickness) Qty: 1 0RF cyclobenzaprine 10 mg tablet 10 mg PO TID Qty: 30 0RF atorvastatin 40 mg tablet 40 mg PO DAILY Qty: 100 1RF benzonatate 200 mg capsule 200 mg PO TID Qty: 30 0RF codeine-guaifenesin [Guaifenesin AC] 10-100 mg/5 mL liquid 10 ml PO Q4-6H PRN (Reason: cough) Qty: 178 0RF ibandronate 150 mg tablet 150 mg PO MONTHLY Qty: 3 3RF <Edna Sepulveda PA-C - Last Filed: 07/22/24 02:17> Follow-up/Referrals: Ranjeet Quezada MD [Primary Care Provider] - <Edna Sepulveda PA-C - Last Filed: 07/22/24 02:17> Time of Disposition: 23:52 <Edna Sepulveda PA-C - Last Filed: 07/22/24 02:17> 23:52 <Vlad Rodgers MD - Last Filed: 07/22/24 23:14>
[2024-07-21 22:43] VITALS: BP 127/76; PULSE 98; RESP 19; O2SAT 96
[2024-07-21 22:48] LABS: Alanine Aminotransferase 23 U/L (6-35); Albumin Level 4.3 g/dL (3.5-5.1); Alkaline Phosphatase 83 U/L (38-126); Anion Gap 7 mmol/L (4-12); Aspartate Amino Transferase 33 U/L (14-36); Bilirubin,Total 0.5 mg/dL (0.2-1.3); Blood Urea Nitrogen 17 mg/dL (7-17); Calcium 9.2 mg/dL (8.4-10.2); Carbon Dioxide 23 mmol/L (22-30); Chloride 108 mmol/L (98-107); Estimated Glomerular Filt Rate > 60; Glucose 144 mg/dL (65-110); Magnesium 2.2 mg/dL (1.6-2.3); Potassium 3.9 mmol/L (3.4-5.0); Sodium 138 mmol/L (137-145)
[2024-07-21 22:57] LABS: Troponin I < 0.012 ng/mL (0.000-0.034)
[2024-07-21 23:11] LABS: Partial Thromboplastin Time 29.7 Seconds (22.3-36.8)
[2024-07-22 00:02] VITALS: BP 146/86; PULSE 94; RESP 17; O2SAT 97
== END 2024-07-22 00:04 | disposition home or self-care (01) ==
PROVIDERS: Emergency Provider Physician Assistant; PCP Internal Medicine
DX: I47.10 Supraventricular tachycardia, unspecified (principal); R07.89 Other chest pain; E78.5 Hyperlipidemia, unspecified; E55.9 Vitamin D deficiency, unspecified; G47.33 Obstructive sleep apnea (adult) (pediatric); M81.0 Age-related osteoporosis without current pathological fracture; M19.071 Primary osteoarthritis, right ankle and foot; K21.9 Gastro-esophageal reflux disease without esophagitis; R90.82 White matter disease, unspecified; R73.03 Prediabetes; Z86.16 Personal history of COVID-19
CPT/HCPCS: 36415; 80053; 83735; 84484; 85025; 85610; 85730; 93005; 96374; 99284; J0153; J7030

== ENCOUNTER 2024-12-31 02:22 | Emergency (ER) | payer MEDICARE, SELFPAY ==
[2024-12-31 02:16] VITALS: BP 139/68; PULSE 87; RESP 17; TEMP 36.9; O2SAT 95
--- NOTE | 2024-12-31 02:26 | ECG_ITS ---
Test Date: 2024-12-31 02:26:27 Measurements Intervals [place] Rate: 87 P: 10 CT: 190 QRS: 16 QRSD: 98 T: 45 QT: 395 QTc: 476 Interpretive Statements SINUS RHYTHM NORMAL ECG Compared to ECG 07/21/2024 22:13:26 Supraventricular tachycardia no longer present Electronically Signed On 12-31-2024 08:22:21 CDT by Aquiles Hill M.D.
--- NOTE | 2024-12-31 02:33 | ED.ARRPALP ---
HPI - Arrhythmia/Palpitations General Chief Complaint: Arrhythmia/Palpitations Stated Complaint: SOB/SVT Time Seen by Provider: 12/31/24 02:26 History of Present Illness HPI narrative: Patient presenting here with episode of SVT, she has had this in the past which was successfully treated with ablation, and then is currently on sotalol, earlier tonight started feeling palpitations and short of breath, she did try Valsalva maneuvers at home with improvement in her symptoms, but they unfortunately came back. EMS was called and they administered adenosine and put her back into sinus rhythm. She is now denying any symptoms Related Data Home Medications ?Medication ?Instructions ?Recorded ?Confirmed ?Last Taken ?Type omeprazole magnesium 10 mg oral 10 mg PO DAILY 07/22/19 02/12/24 Unknown History suspension,delayed release (Prilosec) omega-3 fatty acids 1,000 mg 2,000 mg PO BID 03/18/20 02/12/24 Unknown History capsule multivitamin with minerals 1 tablet PO DAILY 04/06/21 02/12/24 Unknown History (Hair,Skin and Nails tablet) magnesium 200 mg tablet 400 mg PO BID 04/24/22 02/12/24 Unknown History isosorbide mononitrate 30 mg 30 mg PO DAILY 05/01/22 02/12/24 Unknown History tablet,extended release 24 hr sotalol 80 mg tablet 40 mg PO BID 03/28/23 02/12/24 Unknown History Allergies Allergy/AdvReac Type Severity Reaction Status Date / Time chlorpheniramine Allergy Mild Unknown Verified 12/31/24 02:31 dexchlorpheniramine Allergy Mild Unknown Verified 12/31/24 02:31 phenylephrine Allergy Mild Unknown Verified 12/31/24 02:31 scopolamine Allergy Mild Unknown Verified 12/31/24 02:31 metformin Allergy Unknown Unknown Verified 12/31/24 02:31 Sulfa (Sulfonamide Allergy Unknown Unknown Verified 12/31/24 02:31 Antibiotics) NONSTEROIDAL AdvReac Mild HARD ON Uncoded 12/31/24 02:31 LIVER Review of Systems Review of Systems: All systems reviewed & are unremarkable except as noted in HPI and below PMFSH Past Medical History Medical History Abnormal diagnostic test result Abnormal finding of blood chemistry Acquired pes planovalgus of right foot Anxiety Arthritis of ankle, right Arthritis of right foot Back pain BMI 27.0-27.9,adult BMI 30.0-30.9,adult BMI 31.0-31.9,adult BMI 32.0-32.9,adult BMI 36.0-36.9,adult BMI 37.0-37.9, adult Body mass index (BMI) 40.0-44.9, adult Body mass index [BMI] 40.0-44.9, adult (04/01/19) Breast pain, left Ear pain, right Encounter for Medicare annual wellness exam Encounter for preventive health examination Encounter for routine adult health examination without abnormal findings Fatigue Fracture of medial malleolus, left, closed GERD (gastroesophageal reflux disease) Hammertoe of right foot Hyperlipidemia Left foot pain Left knee pain Left leg swelling Left patella fracture On senior living drug therapy JOY on CPAP Osteoporosis Other chronic pain Otitis media Pain in left ankle and joints of left foot Pain of left calf Pedal edema Personal history of COVID-19 Pes planus of both feet Plantar fasciitis, bilateral Posterior tibial tendon dysfunction (PTTD) of right lower extremity Pre-operative clearance Prediabetes Right knee pain Shortness of breath SVT (supraventricular tachycardia) Vitamin D deficiency White matter disease Surgical History Surgical History H/O cardiac radiofrequency ablation History of cardiac cath Family History Family History Mother Depression Patient's mother is Cerebrovascular accident Family history of coronary artery disease Father Family history of lung cancer Patient's father is Other Diabetes mellitus Family history of arthritis Family history of malignant neoplasm Family history of malignant neoplasm of breast Social History Social History Smoking status: Never smoker Second hand tobacco smoke exposure: No Alcohol intake: never Lack of Transportation: No Lack of Food: Never True Current Housing: I Have Housing Concerned About Future Housing: No Difficulty Paying Gas/Electric Bills: No Difficulty Paying for Meds: No Currently Unemployed: No Education: Master's Degree or Higher Difficulty w/ Childcare or Family Care: No Living arrangements: with family Gender identity (if verbalized by the patient): Female Exam Narrative: EXAMINATION OF ORGAN SYSTEMS/BODY AREAS: Constitutional: Vital signs per nursing GENERAL:[No acute distress, non-toxic appearing.] HEAD: Normal with no signs of head trauma. EYES: EOMI, conjunctiva normal ENT: Hearing grossly intact LUNGS: Nonlabored breathing. HEART: [Regular rate and rhythm] ABD: [Soft], [nontender to palpation] EXT: Normal range of motion SKIN: [No rashes or lesions.] NEURO: [Alert and oriented x 3. No gross focal sensory or strength deficits.] PSYCH: Normal affect Course Vital Signs Vital signs: Vital Signs Temperature 98.4 F 12/31/24 02:16 Pulse Rate 87 12/31/24 02:16 Respiratory Rate 17 12/31/24 02:16 Blood Pressure 139/68 12/31/24 02:16 Pulse Oximetry 95 12/31/24 02:16 Oxygen Delivery Room Air 12/31/24 02:16 Temperature 98.4 F 12/31/24 02:16 Pulse Rate 87 12/31/24 02:16 Respiratory Rate 17 12/31/24 02:16 Blood Pressure 139/68 12/31/24 02:16 Pulse Oximetry 95 12/31/24 02:16 Oxygen Delivery Room Air 12/31/24 02:16 MDM - Arrhythmia/Palpitations MDM Narrative Medical decision making narrative: 69-year-old female with history of SVT presents here with episode of SVT, EMS try initially tried Valsalva without improvement and then were able to administer 6 mg of adenosine which did convert the patient. 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 with return precautions, discussed that she may benefit from a pill in pocket or ablation again if she continues to have future episodes, patient agreeable to this plan Lab Data 12/31/24 02:35 12/31/24 02:35 Labs: Lab Results 12/31/24 Range/Units 02:35 WBC 6.2 (4.5-10.0) K/mm3 RBC 4.59 (4.2-5.4) M/mm3 Hgb 13.3 (12.0-15.0) g/dL Hct 42.7 (37.0-47.0) % MCV 93.0 (80-100) fl MCH 29.0 (26-34) pg MCHC 31.1 L (32-36) g/dl RDW 13.2 (11.5-14.5) % Plt Count 256 (150-375) k/mm3 MPV 11.1 H (7.4-10.4) fl Immature Gran % (Auto) 0.2 (0-0.5) % Neut % (Auto) 55.9 (45.5-73.1) % Lymph % (Auto) 25.8 (18.3-44.2) % [place] % (Auto) 14.3 H (2.6-8.5) % Eos % (Auto) 3.0 (0-4.4) % Baso % (Auto) 0.8 (0.2-1.2) % Lymph # (Auto) 1.61 (0.9-3.2) K/mm3 [place] # (Auto) 0.9 H (0.1-0.6) K/mm3 Eos # (Auto) 0.2 (0-0.3) K/mm3 Baso # (Auto) 0.1 (0.0-0.1) K/mm3 Abs Immat Gran (auto) 0.01 (0.00-0.031) K/mm3 Absolute Neuts (auto) 3.5 (1.3-6.7) K/mm3 Absolute Nucleated RBC 0.000 (0.0-0.012) K/mm3 Nucleated RBC % 0.0 (0.0-0.2) % Sodium 138 (137-145) mmol/L Potassium 3.4 (3.4-5.0) mmol/L Chloride 104 (98-107) mmol/L Carbon Dioxide 21 L (22-30) mmol/L Anion Gap 13 H (4-12) mmol/L BUN 28 H D (7-17) mg/dL Creatinine 0.65 L (0.7-1.0) mg/dL Estim Creat Clear Calc 63 ml/min Estimated GFR > 60 (59 - ) Glucose 136 H (65-110) mg/dL Calcium 9.2 (8.4-10.2) mg/dL Troponin I < 0.012 (0.000-0.034) ng/mL Discharge Plan Discharge Clinical Impression: SVT (supraventricular tachycardia) Patient Disposition: Home Condition: Stable Instructions: Supraventricular Tachycardia (ED) Additional Instructions: Please follow-up with your paint roller covers supervisor, you may benefit from a prescription for a pill in the pocket to help with further episodes, you can always return to the emergency room if your symptoms restart or anything else. Patient Language: Indonesian Prescriptions: No Action multivitamin with minerals [Hair,Skin and Nails] Tablet 1 tablet PO DAILY nystatin-triamcinolone 100,000-0.1 unit/g-% cream 1 applic topical BID Qty: 30 2RF Rx Instructions: apply to affected area BID magnesium 200 mg tablet 400 mg PO BID Prilosec 10 mg susp,delayed release for recon 10 mg PO DAILY omega-3 fatty acids 1,000 mg capsule 2,000 mg PO BID sotalol 80 mg tablet 40 mg PO BID alprazolam 0.25 mg tablet 0.25 mg PO TID PRN (Reason: anxiety) Qty: 20 0RF doxycycline hyclate 100 mg tablet 100 mg PO BID Qty: 20 0RF prednisone 20 mg tablet 40 mg PO DAILY Qty: 10 0RF docusate sodium [Colace] 100 mg capsule 100 mg PO DAILY 15 Days Qty: 15 0RF isosorbide mononitrate 30 mg tablet extended release 24 hr 30 mg PO DAILY ascorbic acid (vitamin C) 1,000 mg tablet 1 g PO DAILY Qty: 30 0RF Restasis MultiDose 0.05 % drops 1 drp EACH EYE Q12H Qty: 5.5 0RF cetirizine 10 mg capsule 10 mg PO DAILY Qty: 500 1RF Calcium 600 + D(3) 600 mg-5 mcg (200 unit) capsule 1 cap PO DAILY Qty: 30 0RF scopolamine base 1 mg over 3 days patch 3 day 1 patch transdermal Q3D PRN (Reason: motion sickness) Qty: 1 0RF cyclobenzaprine 10 mg tablet 10 mg PO TID Qty: 30 0RF benzonatate 200 mg capsule 200 mg PO TID Qty: 30 0RF codeine-guaifenesin [Guaifenesin AC] 10-100 mg/5 mL liquid 10 ml PO Q4-6H PRN (Reason: cough) Qty: 178 0RF ibandronate 150 mg tablet 150 mg PO MONTHLY Qty: 3 3RF atorvastatin 40 mg tablet See Rx Instructions .ROUTE .COMPLEX Qty: 100 1RF Dose Instruction: TAKE 1 TABLET BY MOUTH DAILY Rx Instructions: TAKE 1 TABLET BY MOUTH DAILY fluticasone propionate 50 mcg/actuation spray,suspension See Rx Instructions .ROUTE .COMPLEX Qty: 48 4RF Dose Instruction: USE 2 SPRAYS IN BOTH NOSTRILS DAILY Rx Instructions: USE 2 SPRAYS IN BOTH NOSTRILS DAILY pantoprazole 40 mg tablet,delayed release (DR/EC) 40 mg PO QAM Qty: 90 0RF Follow-up/Referrals: Ranjeet Quezada MD [Primary Care Provider] -
[2024-12-31 02:41] LABS: Basophils Absolute Auto 0.1 K/mm3 (0.0-0.1); Basophils Percent Auto 0.8 % (0.2-1.2); Eosinophils Absolute Auto 0.2 K/mm3 (0-0.3); Hematocrit 42.7 % (37.0-47.0); Hemoglobin 13.3 g/dL (12.0-15.0); Immature Granulocyte Absolute 0.01 K/mm3 (0.00-0.031); Immature Granulocyte Percent A 0.2 % (0-0.5); Lymphocytes Absolute Auto 1.61 K/mm3 (0.9-3.2); Lymphocytes Percent Auto 25.8 % (18.3-44.2); Mean Corpuscular HGB Conc 31.1 g/dl (32-36); Mean Platelet Volume 11.1 fl (7.4-10.4); Monocytes Absolute Auto 0.9 K/mm3 (0.1-0.6); Monocytes Percent Auto 14.3 % (2.6-8.5); Neutrophils Absolute Auto 3.5 K/mm3 (1.3-6.7); Neutrophils Percent Auto 55.9 % (45.5-73.1); Platelet Count Result 256 k/mm3 (150-375); Red Blood Count 4.59 M/mm3 (4.2-5.4); Red Cell Distribution Width 13.2 % (11.5-14.5); White Blood Count 6.2 K/mm3 (4.5-10.0)
[2024-12-31 02:50] LABS: Anion Gap 13 mmol/L (4-12); Blood Urea Nitrogen 28 mg/dL (7-17); Calcium 9.2 mg/dL (8.4-10.2); Carbon Dioxide 21 mmol/L (22-30); Chloride 104 mmol/L (98-107); Estimated CRCL calculation 63 ml/min; Estimated Glomerular Filt Rate > 60; Glucose 136 mg/dL (65-110); Potassium 3.4 mmol/L (3.4-5.0); Sodium 138 mmol/L (137-145)
[2024-12-31 03:02] LABS: Troponin I < 0.012 ng/mL (0.000-0.034)
--- OUTSIDE RECORDS SUMMARY | 2024-12-31 03:11 | XMS_ITS | Referral Summary ---
Author Organization [facility] Address [address] [place] [id number] Care Team Providers Care Environmental Property Assessor Name Role Phone Ranjeet Quezada MD Primary Care Provider [phone] Ramiro Alvarez MD Unavailable [phone] Allergies Active Allergy Reactions Criticality Noted Date Comments Sulfa (Sulfonamide Antibiotics) Swelling Medium 08/2021 Medications fluticasone propionate (FLONASE) 50 mcg/actuation nasal sprayIndication s:Allergic Rhinitis Administer 1 spray into each nostril 2 (two) times a day as needed for allergies or rhinitis Active cycloSPORINE (RESTASIS) 0.05 % ophthalmic emulsion Administer 1 drop into both eyes 2 (two) times a day Active aspirin 81 mg enteric coated tablet Take 81 mg by mouth daily Active dilTIAZem XR (CARDIZEM CD,DILACOR XR) 180 mg 24 hr capsule Take 1 capsule (180 mg total) by mouth daily 30 capsule 11 2 Active [id number]-hhh-[id number] (Krill Oil, Strawberry 3 and 6,) 1000-130(40-80) mg capsule Take 1 capsule by mouth 2 (two) times a day 3 Active docusate sodium (COLACE) 100 mg capsule Take 100 mg by mouth daily Active BinaxNOW COVID-19 Ag Self Test kit TEST DIRECTED TODAY 2 Active cetirizine (ZyrTEC) 10 mg tablet Take 10 mg by mouth daily Active calcium carbonate-vitam in D3 1,500 mg (600mg elemental) -800 unit per tablet Take 1 tablet by mouth daily 3 Active ascorbic acid (VITAMIN C) 1,000 mg tablet Take 1,000 mg by mouth daily Active omeprazole (PriLOSEC) 20 mg capsule Take 1 tablet by mouth nightly Active magnesium oxide 400 mg magnesium capsule Take 800 mg by mouth 2 (two) times a day Active biotin 2,500 mcg capsule Take 1 capsule by mouth 2 (two) times a day Hair skin nail gummies Active cholecalciferol (VITAMIN D-3) 2000 unit tablet Take 2,000 Units by mouth 2 (two) times a day Active apixaban (ELIQUIS) 5 mg tablet Take 10 mg by mouth 2 (two) times a day Active ezetimibe (ZETIA) 10 mg tablet 2 Active nystatin cream APPLY TOPICALLY TO THE AFFECTED AREA THREE TIMES DAILY NEEDED FOR YEAST RASH 2 Active atorvastatin (LIPITOR) 20 mg tablet Take 1 tablet (20 mg total) by mouth nightly 30 tablet 11 2 Active flecainide (TAMBOCOR) 100 mg tablet Take 1 tablet (100 mg total) by mouth 2 (two) times a day 60 tablet 11 2 Active Active Problems Problem Noted Date Diagnosed Date NSTEMI (non-ST elevated myocardial infarction) 0 12/15/2021 PFO (patent foramen ovale) 12/15/2021 High anion gap metabolic acidosis 12/15/2021 JOY (obstructive sleep apnea) 12/15/2021 Chest pain, unspecified type 12/15/2021 SVT (supraventricular tachycardia) 12/14/2021 Social History Tobacco Use Types Packs/Day Years Used Date Smoking Tobacco: Never Smokeless Tobacco: Never Tobacco Cessation:Counseling Given: Not Answered Alcohol Use Standard Drinks/Week Comments No 0 (1 standard drink = 0.6 oz pur e alcohol) Social Connection and Isolat ion Panel [NHANES] Answer Date Recorded In a typical week, how many times do you talk on the phone with family, friends, or neighbors? More than three times a week 12/15/2021 How often do you get togethe r with friends or relatives? More than three times a week 12/15/2021 How often do you attend [facility] or [facility] services? More than 4 times per year 12/15/2021 Do you belong to any clubs o r organizations such as christian groups, unions, fraternal or athletic groups, or school groups? No 12/15/2021 How often do you attend meet ings of the clubs or organizations you belong to? Never 12/15/2021 Are you , , di vorced, , never , or living with a partner? 12/15/2021 AUDIT-C Answer Date Recorded Q1: How often do you have a drink containing alc ohol? Never 01/12/2022 Average Number of Drinks Not on file 022 Q3: How often do you have si x or more drinks on one occasion? Never 01/12/2022 Overall Financial Resource Strain (CARDIA) Answe r Date Recorded How hard is it for you to pa y for the very basics like food, housing, medical care, and heating? Not hard at all 12/15/2021 Hunger Vital Sign Answer Date Recorded Within the past 12 months, y ou worried that your food would run out before you got the money to buy more. Never true 12/16/19 22 Within the past 12 months, t he food you bought just didn't last and you didn't have money to get more. Never true 12/15/2021 PRAPARE - Transportation Answer Date Re corded In the past 12 months, has l ack of transportation kept you from medical appointments or from getting medications? No 12/2021 In the past 12 months, has l ack of transportation kept you from meetings, work, or from getting things needed for daily living? No 12/15/2021 Comments No Sex and Gender Information Value Date Recorded Sex Assigned at Not on file Legal Sex Female 12:49 PM DONOR RELATIONS ASSOCIATE Gender Identity Female 11/22/2023 12:00 PM CDT Sexual Orientation Not on file Last Filed Vital Signs Vital Sign Reading Time Taken Comments Blood Pressure 131/80 08/28/2022 2:18 PM DONOR RELATIONS ASSOCIATE Pulse 82 08/28/2022 2:18 PM DONOR RELATIONS ASSOCIATE Temperature 36.7 C (98 F) 08/28/2022 2:18 PM DONOR RELATIONS ASSOCIATE Respiratory Rate 18 08/28/2022 2:18 PM DONOR RELATIONS ASSOCIATE Oxygen Saturation 94% 08/28/2022 2:18 PM DONOR RELATIONS ASSOCIATE Inhaled Oxygen Concentration - - Weight 109.5 kg (241 lb 8 oz) 08/28/2022 2:18 PM DONOR RELATIONS ASSOCIATE Height 165.1 cm (5' 5 ) 08/28/2022 2:18 PM DONOR RELATIONS ASSOCIATE Body Mass Index 40.19 08/28/2022 2:18 PM DONOR RELATIONS ASSOCIATE Plan of Treatment Not on file Procedures Procedure Name Priority Date/Time Associated Diagnosis Comments SCREENING MAMMOGRAM BILATERAL W STEFANO Schedule Routine, Read Routine (OP Routine) 08/28/2024 11:16 AM DONOR RELATIONS ASSOCIATE Screening mammogram, encounter for DEXA AXIAL SKELETON BONE DENSITY 1 OR MORE SITES Schedule Routine, Read Routine (OP Routine) 08/09/2022 11:12 AM DONOR RELATIONS ASSOCIATE Asymptomatic menopausal state from Last 3 Months or Most Recently Relevant to Health Maintenance Results * Screening Mammogram Bilateral W Stefano (08/28/2024 11:16 AM DONOR RELATIONS ASSOCIATE) Anatomical Region Laterality Modality Breast Bilateral Mammography Narrative 08/28/2024 12:15 PM DONOR RELATIONS ASSOCIATE Examination: Screening Mammogram Bilateral W Stefano: 08/28/24 Clinical: Screening mammogram, encounter for. Prior Study Comparisons: Comparison was made to the prior available relevant studies at the time of interpretation. Findings: Screening Mammogram Bilateral W Stefano Bilateral No significant masses, malignant type calcifications, skin thickening, nipple retraction, or significant lymphadenopathy is noted in either breast. Computer Aided Detection was utilized for the interpretation of this study. There are scattered areas of fibroglandular density. The patient will be notified of results by letter. Impression: BI-RADS ATLAS category (overall): 2 - Benign There is no mammographic evidence of malignancy. Routine Screening Mammogram in 1 Yr is recommended for bilateral Overall Assessment: 2 - Benign us Self Screening Mammogram IMG MAMMO PROCEDURES Fi nal Result * Dexa Axial Skeleton Bone Density 1 or 2 Site (08/09/2022 11:12 AM DONOR RELATIONS ASSOCIATE) Anatomical Region Laterality Modality Body N/A Digital Radiogra phy 08/09/2022 11:4 9 AM DONOR RELATIONS ASSOCIATE Impressions 08/09/2022 11:49 AM DONOR RELATIONS ASSOCIATE Low bone mass (osteopenia) which depending on the clinical circumstances may result in a moderate increased risk of fragility fracture. If followup is to be done, for technical reasons, it should be performed on this same machine. Electronically signed by: Jun Alicia M.D. Narrative 08/09/2022 11:49 AM DONOR RELATIONS ASSOCIATE EXAM: Bone mineral density examination HISTORY: Postmenopausal female. DXA BMD was done at [facility] on a Hologic [facility] W. Precision testing at this site is not yet available. BMD L1-L4 is 0.833 g/sq cm corresponding to a T score of -1.9. BMD left femoral neck is 0.591 g/sq cm corresponding to a T score of -2.3. BMD total left hip is 0.837 g/sq cm corresponding to a T score of -0.9. The 10-year fracture risk for major osteoporotic fracture: Not calculated. The 10-year fracture risk for hip fracture: Not calculated. COMPARISON: Comparison with the prior study is not entirely valid as it was done on a completely different machine. Procedure Note Jun Alicia MD - 08/09/2022 EXAM: Bone mineral density examination HISTORY: Postmenopausal female. DXA BMD was done at [facility] on a [facility] W. Precision testing at this site is not yet available. BMD L1-L4 is 0.833 g/sq cm corresponding to a T score of -1.9. BMD left femoral neck is 0.591 g/sq cm corresponding to a T score of -2.3. BMD total left hip is 0.837 g/sq cm corresponding to a T score of -0.9. The 10-year fracture risk for major osteoporotic fracture: Not calculated. The 10-year fracture risk for hip fracture: Not calculated. COMPARISON: Comparison with the prior study is not entirely valid as it was done on a completely different machine. IMPRESSION: Low bone mass (osteopenia) which depending on the clinical circumstances may result in a moderate increased risk of fragility fracture. If followup is to be done, for technical reasons, it should be performed on this same machine. Electronically signed by: Jun Alicia M.D. Matt Marquis MD [facility] [place] DXA PROCEDURES Final Re sult from Last 3 Months or Most Recently Relevant to Health Maintenance Insurance [employer] [facility] UHC MEDICARE ADVANTAGE [facility] Address: [address] [address] [place] [address] [facility] MEDICARE ADVANTAGE [facility] Address: [address] [address] [place] [address] [facility] MEDICARE ADVANTAGE [facility] Address: [facility] [address] [place] [address] Advance Directives For more information, please contact: [phone] Documents on File Type Date Recorded Patient Software Integration Developer Expl anation ADVANCE DIRECTIVE 01/12/2022 9:56 AM Power of Soft Hat Binder-Medical * Full Code (Latest Code Status on File) Date Activated Date Inactivated Comments 12/15/2021 1:49 AM 12/16/2021 5:54 PM Care Teams Environmental Property Assessor Relationship Specialty Start Date End Date Ranjeet Quezada MD [address] [place] [address] PCP - General 08/12/17 Ramiro Alvarez MD [address] [place] [address] Consulting Physician Cardiology 01/13/22
--- OUTSIDE RECORDS SUMMARY | 2024-12-31 03:11 | XMS_ITS | Continuity of Care Document ---
Author Organization [facility] Address [address] [place] [address] Phone Care Team Providers Care Integrated Circuit Ic Layout Designer Name Role Phone Melchor Moreno MD Unavailable Unavailable Allergies, Adverse Reactions, Alerts Substance Reaction Status Criticality Sulfa (Sulfonamide Antibiotics) Active No Information Medications Medication Instructions Dosage Effective Dates (start - stop) Status Comments FISH OIL (unknown strength) Not Available - Active ASPIRIN (unknown strength) Not Available - Active STOOL SOFTENER (unknown strength) Not Available - Active LOSARTAN-HYDROCHLOROTH IAZIDE (unknown strength) Not Available - Active FLOVENT HFA (unknown strength) Not Available - Active PRILOSEC (unknown strength) Not Available - Active Procedures Procedure Date OFFICE/OUTPATIENT VISIT EST MU Reporting OFFICE/OUTPATIENT VISIT NEW Advance Directives Directive Yes / No Effective Date File Name No Information Encounters Encounter Description Practice Location Reason(s) For Visit Diagnoses Date Provider Providers Copied on Encounter [facility] , [address] [facility] [address], [facility], tel:[phone] [facility] No Information 7 Josh Roche. [address] [place], [place], [id number] . tel: [phone] [facility] , [address], [address], [phone] [facility] No Information 4 Arabella Velasco. [address] [place], [place], [id number] . tel: [phone] Referring Provider: Lea Markham, [address], [place], [address]. tel:[phone] [facility] , [address] [address], [place], [address], [place] tel:[phone] [facility] Osteoarthros is, unspecified 4 Rashi Tate. [address] [place], [place], [id number] . tel: [phone] OFFICE/OUTPAT IENT VISIT [facility] , [address], [address], [place] tel:[phone] [facility] Osteoarthros is, unspecified 4 Rashidamaso Burciagas. [address] [place], [place], [id number] . tel: [phone] Referring Provider: [address], [place], [address]. tel:[phone] OFFICE/OUTPAT IENT VISIT NEW [facility] , [address] [address], [place], [address], [place] tel:[phone] [facility] Hypertension , UnspecifiedO steoarthrosi s, unspecified whether generalized or localized, involving lower leg 3 Rashi Tate. [address] [place], [place], [id number] . tel: [phone] Referring Provider: [address], [place], [address]. tel:[phone] Family History Family Member Type Diagnosis Age At Onset mother Problem (finding) stroke father Problem (finding) malignant neoplasm of l trish Payers Payer name Insurance type Covered democrat ID Authoriza tion(s) No Information Social History Type Description Quantity Date Captured Comments Sex Female Smoking Status No Information Chief Complaint And Reason For Visit No Information Reason For Referral Reason For Referral No Information Plan Of Treatment Date Type Action Status Referral Ordered: RADEX FOOT COMPL MINIMUM 3 VIEWS RT ordered Referral Ordered: INJECTION Bilateral knee Appointment date/timeframe: 03/10/2014 ordered Referral Ordered: RADEX KNE COMPL 4/MORE VIEWS Bilateral knee ordered Referral Ordered: RADEX KNE COMPL 4/MORE VIEWS RT knee ordered History Of Present Illness Encounter Date Complaint History Of Prese nt Illness No Information Functional Status Date Functional Assessmen t No Information Instructions Date Instruction Additional Infor mation OTC medication - Activity as tolerated Assessments Type Assessment Date No Information Patient Care Teams Name Effective Dates (start - stop) Status Members No Information
--- OUTSIDE RECORDS SUMMARY | 2024-12-31 03:11 | XMS_ITS | Clinical Summary ---
Author Organization [facility] Address [address] [facility] [place] [address] Care Team Providers Care Qc Tech Name Role Phone Ranjeet Quezada MD Primary Care Provider Xavier Mobley MD Unavailable [phone] Source Comments [facility],non-owned Affiliates and Associated Physician Practices is amultiple site organization consisting of ambulatory clinics and hospital sitesin [place], [place], [place]. This disclosure is being madepursuant to the Care Everywhere program and may not contain all information available regarding this patient. Last updated 18.[facility] Allergies Active Allergy Reactions Criticality Noted Date Comments Sulfa Drugs 05/09/2017 Medications * Be aware that medications may not be up to date on this document. Alwaysverify current medications with the patient. fluticasone propionate (FLONASE) 50 MCG/ACT nasal spray 1-2 sprays each nostril daily 09/03/2018 Active atorvastatin (LIPITOR) 20 MG tablet Take 1 tablet by mouth once daily 09/18/2018 Active vitamin C (ASCORBIC ACID) 1000 MG tablet Take 1,000 mg by mouth once daily Active cetirizine (ZYRTEC) 10 MG tablet Take 10 mg by mouth once daily Active docusate sodium (COLACE) 100 MG capsule Take 100 mg by mouth once daily Active CALCIUM-VITAMIN D PO Take 1 tablet by mouth once daily Active [place]-3 Krill Oil 1000 MG Take 1 tablet by mouth once daily Active Omeprazole (PRILOSEC PO) Take 1 tablet by mouth once daily Active aspirin (ASPIRIN) 81 MG tablet Take 81 mg by mouth once daily Active Active Problems Problem Noted Date Diagnosed Date Primary osteoarthritis of both knees 05/24/2021 Prediabetes 07/23/2019 Arteriosclerosis of coronary artery 08/26/2018 Supraventricular tachycardia 07/15/2018 Immunizations Immunization Administration Dates Next Due FLU VACCINE QUAD IIV4 PF ID 05/23/2016 INFLUENZA VACCINE, QUADR. (F LUZONE; FLULAVAL; FLUARIX; AFLURIA QUADRIVALENT; 6MO+), 0.5 ML (IIV4) 05/05/2019,04/05/2018,05/09/2017 Social History Tobacco Use Types Packs/Day Years Used Date Smoking Tobacco: Never Smokeless Tobacco: Never Alcohol Use Standard Drinks/Week Comments No 0 (1 standard drink = 0.6 oz pur e alcohol) Comments Unknown Sex and Gender Information Value Date Recorded Sex Assigned at Female 05/16/2021 10:45 AM CDT Legal Sex Female 4:47 PM CDT Gender Identity Female 05/16/2021 10:45 AM CDT Sexual Orientation Straight 05/16/2021 10 :45 AM CDT Last Filed Vital Signs Vital Sign Reading Time Taken Comments Blood Pressure - - Pulse - - Temperature - - Respiratory Rate - - Oxygen Saturation - - Inhaled Oxygen Concentration - - Weight 83.5 kg (184 lb) 05/23/2021 3:38 PM CDT Height 162.6 cm (5' 4 ) 05/23/2021 3:38 PM CDT Body Mass Index 31.58 05/23/2021 3:38 PM CDT Plan of Treatment Health Maintenance Due Date Last Done Comments BONE DENSITY TESTING 1955 COLOGUARD (AGES 45-75) - COLON CA SCREENING 1955 COLON MONITORING 1955 COLONOSCOPY - COLON CA SCREENING 1955 CT COLONOGRAPHY - COLON CA SCREENING 1955 Colorectal Cancer Screening 1955 FIT - COLON CA SCREENING 1955 FLEX SIG - COLON CA SCREENING 1955 MAMMOGRAM 1955 HEPATITIS C SCREENING 05/28/1973 DTAP/TDAP/TD VACCINES (1 - Tdap) 1974 PNEUMOCOCCAL VACCINE 50+ (1 of 1 - PCV) 2005 ZOSTER VACCINE (1 of 2) 2005 SCREENING FOR DIABETES 05/23/2021 COVID-19 VACCINE ( season) 2024 DEPRESSION SCREENING 08/13/2024 MEDICARE AWV CALENDAR YEAR 2024 INFLUENZA VACCINE (Season Ended) 2025 05/05/2019, 04/05/2018, 05/09/2017, Additional history exists Respiratory Syncytial Virus (RSV) Vaccine Pt: or over 60 yrs (1 - 1-dose 75+ series) 2030 HEPATITIS B VACCINE Aged Out No longe r eligible based on patient's age to complete this topic HIB VACCINE Aged Out No longer eligi ble based on patient's age to complete this topic HPV VACCINE Aged Out No longer eligi ble based on patient's age to complete this topic MENINGOCOCCAL (Group B) VACCINE SHARED DECISION-MAKING Aged Out No longer eligible based on patient's age to complete this topic MENINGOCOCCAL GROUPS A/C/Y/W VACCINE Aged Out No longer eligible based on patient's age to complete this topic Insurance [employer] [facility]IC[facility] ADV * Guarantor: JILLIAN MASTERS Account Type Relation to Patient Date of Phone Billing Address Personal/Family 1955 [address], [place] [address] [employer] * Guarantor: JILLIAN MASTERS Account Type Relation to Patient Date of Phone Billing Address Personal/Family 1955 [address], [facility] [employer] Care Teams Qc Tech Relationship Specialty Start Date End Date Ranjeet Quezada MD [address] [place] [id number] PCP - General Internal Medicine 05/23/16 [place] [address] [place] [address] Surgeon Orthopedic Surgery 05/23/21
--- OUTSIDE RECORDS SUMMARY | 2024-12-31 03:11 | XMS_ITS | CONTINUITY OF CARE DOCUMENT ---
Author Name delilah iraissania Address Unknown Organization [facility] Address [address] [place] [address] Phone [phone] Care Team Providers Care Linux Kernel Engineer Name Role Phone Raghu MAYER, Patti Unavailable [phone] HEATHER MAYER, SAMANTA Unavailable HEATHER MAYER, SAMANTA Unavailable [phone] PROBLEMS Condition Status Date Provider Notes [id number] 6.0 active Anirudh mccauley RN CHEST PAIN, ATYPICAL active Patti Krishnamurthy MD OBESITY active Patti Krishnamurthy MD HTN SYSTOLIC active Patti Krishnamurthy MD SVT active Patti Krishnamurthy MD CAD - calcium score 406, nor mal stress nuclear, start statin active Patti Krishnamurthy MD Prediabetes active Patti Krishnamurthy MD Preoperative cardiovascular examination active Patti Krishnamurthy MD Syncope and collapse active Frankie Santoyo CAD, 50-60% RCA on cath in 2021 active Calvin Krishnamurthy MD Atrial flutter - one episode of Afib active Abbey Schultz Shortness of breath active Michael Jones Arthritis active Ramiro Alvarez MD Cardiology examination active Michael Jones Hyperlipidemia active Michael Jones Exposure to COVID-19 coronavirus active Angi Jones BACK PAIN active Patti Krishnamurthy MD ENCOUNTERS Date Type Provider Location Encounter Diag nosis 0 - 0 In-person encounter Office Visit Patti Krishnamurthy MD [place] [facility] CAD, 50-60% RCA on cath in [facility] 3 - 3 In-person encounter Office Visit Ramiro Alvarez MD [place] [facility] 3 - 3 In-person encounter Office Visit Ramiro Alvarez MD [facility] Office 0 - 0 In-person encounter Office Visit Patti Krishnamurthy MD [place] [facility] 6 - 9 In-person encounter Office Visit Ramiro Alvarez MD [place] [facility] Cardiology examinationHyperlipidemiaExposure to COVID-19 coronavirus 0 - 2 In-person encounter Office Visit Ramiro Alvarez MD [place] [facility] Arthritis 6 - 1 In-person encounter Office Visit Ford Cross MD [place] [facility] 6 - 6 In-person encounter Office Visit Ramiro Alvarez MD [place] [facility] Shortness of breath 6 - 8 In-person encounter Office Visit Ramiro Alvarez MD [place] [facility] 7 - 7 In-person encounter Office Visit Ramiro Alvarez MD [facility] Atrial flutter - one episode of Afib 7 - 4 In-person encounter Office Visit Rami[facility] Syncope and collapseCAD, 50-60% RCA on cath in 2021 1 - 1 In-person encounter Office Visit Patti Krishnamurthy MD [facility] PrediabetesPreoperative cardiovascular examination 4 - 4 In-person encounter Office Visit Patti Krishnamurthy MD [place] [facility] CAD - calcium score 406, normal stress nuclear, start statin 3 - 3 In-person encounter Office Visit Patti Krishnamurthy MD [place] [facility] SVT 6 - 6 In-person encounter Office Visit Patti Krishnamurthy MD [facility] CHEST PAIN, ATYPICALOBESITYHTN SYSTOLIC VITAL SIGNS Date Observation Value Provider Body Mass Index (Ratio) 41.26 kg/m2 Calvin Krishnamurthy MD blood pressure, diastolic 82 mm[Hg] [facility], [facility] 128 mm[Hg] Sita [facility] saturation, oximetry 96 % [facility] pulse rate 76 /min [facility] respiratory rate E&M 12 /min [facility] weight E&M 248 [lb_av] [facility] height E&M 65 [in_i] [facility] blood pressure, cuff size regular kimberlySt. [facility] blood pressure, diastolic 84 mm[Hg] Li nkLogic blood pressure, systolic 152 mm[Hg] Pura kLog Body Mass Index (Ratio) 41.43 kg/m2 Jared [facility] blood pressure, diastolic 84 mm[Hg] Gloria [facility]St[facility], systolic 152 mm[Hg] Sita [facility] oxygen saturation, oximetry 96 % [facility] pulse rate 64 /min [facility] respiratory rate E&M 14 /min [facility] weight E&M 249 [lb_av] [facility] height E&M 65 [in_i] [facility] blood pressure, cuff size regular k[facility]berlySt[facility] Body Mass Index (Ratio) 40.93 kg/m2 Michael Jones blood pressure, diastolic 89 mm[Hg] Alen [facility], systolic 154 mm[Hg] Marlen la [facility] pressure, cuff size regular Alen [facility] saturation, oximetry 96 % Maris [facility] pulse rate 69 /min Maris [facility] weight E&M 246 [lb_av] Maris [facility] height E&M 65 [in_i] Maris [facility] Body Mass Index (Ratio) 40.60 kg/m2 Calvin Krishnamurthy MD blood pressure, cuff size regular Alen perez [facility] blood pressure, diastolic 89 mm[Hg] Alen brittona [facility] blood pressure, systolic 179 mm[Hg] Marlen la [facility] oxygen saturation, oximetry 96 % Maris [facility] pulse rate 59 /min Maris [facility] weight E&M 244 [lb_av] Maris [facility] height E&M 65 [in_i] Maris [facility] Body Mass Index (Ratio) 39.93 kg/m2 Michael Jones pulse rate 85 /min Alannah [place] blood pressure, cuff size regular Ta bitha Rush blood pressure, diastolic 84 mm[Hg] Ta bitha Rush blood pressure, systolic 128 mm[Hg] Tab itha [place] oxygen saturation, oximetry 95 % Alannah Rush weight E&M 240 [lb_av] Alannah Rush respiratory rate E&M 12 /min Alannah Rush height E&M 65 [in_i] Alannah Rush Body Mass Index (Ratio) 40.77 kg/m2 Deniz Alvarez MD blood pressure, diastolic 77 mm[Hg] Elzbieta Patel blood pressure, systolic 150 mm[Hg] Pura [facility] blood pressure, diastolic 77 mm[Hg] Sowmya willingham [place] blood pressure, systolic 150 mm[Hg] Peter de [place] oxygen saturation, oximetry 95 % Christina Burgos pulse rate 79 /min Christina Jsgloria irma weight E&M 245 [lb_av] Christina Constantino sol[facility] blood pressure, cuff size large Sowmya willingham [place] respiratory rate E&M 16 /min Courtney fair [place] height E&M 65 [in_i] Christina solis Body Mass Index (Ratio) 40.23 kg/m2 Brianna Cross MD blood pressure, diastolic 70 mm[Hg] Elzbieta [facility] blood pressure, systolic 117 mm[Hg] Pura [facility] pulse rate 77 /min Geraldine Holder respiratory rate E&M 20 /min Geraldine Holder oxygen saturation, oximetry 96 % Geraldine Holder blood pressure, diastolic 70 mm[Hg] Myra Holder blood pressure, systolic 117 mm[Hg] She chirag Holder blood pressure, cuff size regular Myra Holder weight E&M 241.8 [lb_av] Geraldine Holder height E&M 65 [in_i] Geraldine Holder Body Mass Index (Ratio) 39.60 kg/m2 Michael Jones blood pressure, diastolic 87 mm[Hg] Li nkLogic blood pressure, systolic 151 mm[Hg] Pura kLogic blood pressure, cuff size large Ke rri Gruenenfelder blood pressure, diastolic 87 mm[Hg] Ke rri Gruenenfelder blood pressure, systolic 151 mm[Hg] Ker ri Gruenenfelder oxygen saturation, oximetry 96 % Agtaha Vargas respiratory rate E&M 16 /min Agatha cr pulse rate 63 /min Agatha Bhatti [facility] weight E&M 238 [lb_av] Agatha Bhatti [facility] height E&M 65 [in_i] Agatha Bhatti [facility] Body Mass Index (Ratio) 38.27 kg/m2 Deniz Alvarez MD blood pressure, diastolic 84 mm[Hg] Fl maulik [place] blood pressure, systolic 147 mm[Hg] [facility] helle [place] oxygen saturation, oximetry 96 % Christina Burgos pulse rate 82 /min Christina solis weight E&M 230 [lb_av] Christina solis respiratory rate E&M 16 /min Courtney Burgos blood pressure, cuff size large Fl maulik [place] height E&M 65 [in_i] Christina solis Body Mass Index (Ratio) 38.44 kg/m2 Natali carolinay [place] blood pressure, cuff size large Fl maulik [place] blood pressure, diastolic 70 mm[Hg] Fl maulik [place] blood pressure, systolic 120 mm[Hg] [facility] helle [place] oxygen saturation, oximetry 96 % Christina Burgos respiratory rate E&M 16 /min Courtney Burgos pulse rate 74 /min Christina solis weight E&M 231 [lb_av] Christina solis height E&M 65 [in_i] Christina solis Body Mass Index (Ratio) 37.11 kg/m2 Deniz Alvarez MD blood pressure, diastolic 72 mm[Hg] Elzbieta nkLogic blood pressure, systolic 130 mm[Hg] Pura kLogshauna blood pressure, diastolic 72 mm[Hg] Adri Lam blood pressure, systolic 130 mm[Hg] Reema Lam pulse rate 71 /min Fab saenz respiratory rate E&M 18 /min Leta Lam oxygen saturation, oximetry 98 % Fba Lam blood pressure, cuff size regular Adri Lam weight E&M 223 [lb_av] Fab saenz height E&M 65 [in_i] Fab saenz Body Mass Index (Ratio) 35.11 kg/m2 Calvin Krishnamurthy MD blood pressure, cuff size large Ra crow Slusser blood pressure, diastolic 76 mm[Hg] Ra crow Slusser blood pressure, systolic 134 mm[Hg] Rac hel Slusser respiratory rate E&M 18 /min Edna Slusser oxygen saturation, oximetry 96 % Edna Slusser pulse rate 78 /min Edna Slusser weight E&M 211 [lb_av] Edna Slusser height E&M 65 [in_i] Edna Slusser Body Mass Index (Ratio) 40.60 kg/m2 Calvin Krishnamurthy MD blood pressure, cuff size large Ke rri Iggynenfawais blood pressure, diastolic 100 mm[Hg] Ke rri Getuenenfeldelian blood pressure, systolic 138 mm[Hg] Andreina ri Sam oxygen saturation, oximetry 98 % Agatha Sam respiratory rate E&M 18 /min Agatha cr pulse rate 92 /min Agatha Davy lder weight E&M 244 [lb_av] Agatha Bhatti er height E&M 65 [in_i] Agatha Bhatti [facility] Body Mass Index (Ratio) 40.77 kg/m2 Calvin Krishnamurthy MD blood pressure, cuff size large [facility], diastolic 80 mm[Hg] Prashant rrkelly [facility] pressure, systolic 138 mm[Hg] Andreina Parkinsonnakuledwardoawais oxygen saturation, oximetry 96 % Agatha Ellerawais respiratory rate E&M 18 /min Agatha Farias shaye pulse rate 76 /min Agatha Bhatti er weight E&M 245 [lb_av] Agatha Bhatti [facility] height E&M 65 [in_i] Agatha Bhatti er Body Mass Index (Ratio) 40.75 kg/m2 Julia ruiz Jacome blood pressure, diastolic 70 mm[Hg] Ch erese Jacome blood pressure, systolic 110 mm[Hg] Imani resmanjula Jacome pulse rate 101 /min Brook Jacome oxygen saturation, oximetry 96 % Brook Jacome respiratory rate E&M 16 /min Brook Jacome weight E&M 244 [lb_av] Brookjoseph Jacome height E&M 65 [in_i] Brook Jacome ALLERGIES Allergy Name Onset Date Reaction Criticality Status ANTIINFLAMMATORY Low Criticality act john SULFA Low Criticality active RESULTS Date Observation Value Provider Reference Range Interpretation Location 4 alanine aminotransferase (SGPT), serum 23 1/L Link[facility] 0-32 4 aspartate aminotransferase (SGOT), serum 36 1/L [facility] 0-40 4 alkaline phosphatase, serum 86 1/L [facility] 44-121 4 bilirubin, serum, total 0.8 mg/dL [facility] 0.0-1.2 4 globulin, serum 3.0 [facility] 1.5-4.5 4 albumin, serum 4.4 g/dL [facility] 3.9-4.9 4 protein, total, serum 7.4 g/dL [facility] 6.0-8.5 4 calcium, serum 9.5 mg/dL [facility] 8.7-10.3 4 carbon dioxide, venous blood 23 mmol/L [facility] 20-29 4 chloride, serum 102 mmol/L [facility] 96-106 4 potassium, serum 4.8 mmol/L [facility] 3.5-5.2 4 sodium, serum 139 mmol/L [facility] 641-468 9062/11/1 4 urea nitrogen/creatinine ratio, serum 33 [facility] 12-28 High 4 creatinine, serum 0.67 mg/dL [facility] 0.57-1.00 4 urea nitrogen, blood 22 mg/dL [facility] 8-27 4 blood glucose, random 93 mg/dL [facility] 70-99 4 lipoprotein, beta, serum, point, quantitative, calculated 88 mg/dL [facility] 0-99 4 HDL cholesterol, serum 41 mg/dL [facility] >39 4 triglyceride, serum, random 116 mg/dL [facility] 0-149 4 cholesterol, serum 150 mg/dL [facility] 741-987 5645/11/1 4 hemoglobin A1C, blood, as % of total hemoglobin 6.2 % [facility] 4.8-5.6 High 3 basophil count, absolute 0.0 x10E3/uL [facility] 0.0-0.2 3 Eosinophil Absolute Count 0.2 X10E3/UL [facility] 0.0-0.4 3 monocyte count, blood, automated 0.7 X10E3/UL [facility] 0.1-0.9 3 lymphocyte count, blood, automated 1.8 X10E3/UL [facility] 0.7-3.1 3 Absolute Neutrophils 3.7 X10E3/UL [facility] 1.4-7.0 3 basophils as percent of blood leukocytes 1 % LinkLogic Not Estab. 3 eosinophils as percent of blood leukocytes 2 % LinkLogic Not Estab. 3 monocytes as percent of blood leukocytes 11 % [facility]Logic Not Estab. 3 lymphocytes as percent of blood leukocytes 28 % LinkLogic Not Estab. 3 neutrophils as percent of blood leukocytes 58 % LinkLogic Not Estab. 3 platelet count 279 X10E3/UL [facility] 069-732 3990/11/1 3 red blood cell distribution width 12.4 % [facility] 11.7-15.4 3 mean corpuscular hemoglobin concentration, RBC 32.8 G/DL [facility] 31.5-35.7 3 mean corpuscular hemoglobin, RBC 29.5 pg [facility] 26.6-33.0 3 mean corpuscular volume, RBC 90 fL [facility] 79-97 3 hematocrit, blood 41.2 % [facility] 34.0-46.6 3 hemoglobin, blood 13.5 g/dL [facility] 11.1-15.9 3 erythrocyte (RBC) count 4.57 X10E6/UL [facility] 3.77-5.28 3 leukocyte count, blood 6.3 X10E3/UL [facility] 3.4-10.8 8 free thyroxine index 2.7 [facility] 1.2-4.9 8 triiodothyronine resin uptake 28 % [facility] 24-39 8 thyroxine, serum, total 9.8 ug/dL [facility] 4.5-12.0 8 thyroid stimulating hormone, serum 2.550 u[IU]/mL [facility] 0.450-4.500 8 lipoprotein, beta, serum, point, quantitative, calculated 74 mg/dL [facility] 0-99 8 HDL cholesterol, serum 45 mg/dL [facility]ic >39 8 triglyceride, serum, random 105 mg/dL [facility] 0-149 8 cholesterol, serum 138 mg/dL [facility] 680-745 3666/06/1 8 alanine aminotransferase (SGPT), serum 18 1/L [facility] 0-32 8 aspartate aminotransferase (SGOT), serum 21 1/L [facility] 0-40 8 alkaline phosphatase, serum 107 1/L [facility] 44-121 8 bilirubin, serum, total 0.6 mg/dL [facility] 0.0-1.2 8 albumin/globulin ratio, serum 1.4 [facility] 1.2-2.2 8 globulin, serum 2.9 [facility] 1.5-4.5 8 albumin, serum 4.0 g/dL [facility] 3.8-4.8 8 protein, total, serum 6.9 g/dL [facility] 6.0-8.5 8 calcium, serum 9.3 mg/dL [facility] 8.7-10.3 8 carbon dioxide, venous blood 23 mmol/L [facility] 20-29 8 chloride, serum 103 mmol/L [facility] 96-106 8 potassium, serum 4.5 mmol/L [facility] 3.5-5.2 8 sodium, serum 140 mmol/L [facility] 960-769 4048/06/1 8 urea nitrogen/creatinine ratio, serum 27 [facility] 12-28 8 creatinine, serum 0.59 mg/dL [facility] 0.57-1.00 8 urea nitrogen, blood 16 mg/dL [facility] 8-27 8 blood glucose, random 102 mg/dL [facility] 70-99 High 8 pro brain natriuretic peptide 40 pg/mL [facility] 0-301 8 activated partial thromboplastin time (aPTT) 32 s [facility] 24-33 8 hemoglobin A1C, blood, as % of total hemoglobin 6.1 % [facility] 4.8-5.6 High 8 basophil count, absolute 0.1 x10E3/uL [facility] 0.0-0.2 8 Eosinophil Absolute Count 0.2 X10E3/UL [facility] 0.0-0.4 8 monocyte count, blood, automated 0.7 X10E3/UL [facility] 0.1-0.9 8 lymphocyte count, blood, automated 2.0 X10E3/UL [facility] 0.7-3.1 8 Absolute Neutrophils 3.8 X10E3/UL [facility] 1.4-7.0 8 basophils as percent of blood leukocytes 1 % LinkLogic Not Estab. 8 eosinophils as percent of blood leukocytes 3 % LinkLogic Not Estab. 8 monocytes as percent of blood leukocytes 11 % LinkLogic Not Estab. 8 lymphocytes as percent of blood leukocytes 29 % LinkLogic Not Estab. 8 neutrophils as percent of blood leukocytes 56 % LinkLogic Not Estab. 8 platelet count 256 X10E3/UL [facility]ic 768-674 7202/06/1 8 red blood cell distribution width 13.1 % [facility]ic 11.7-15.4 8 mean corpuscular hemoglobin concentration, RBC 32.2 G/DL [facility]ic 31.5-35.7 8 mean corpuscular hemoglobin, RBC 28.8 pg [facility] 26.6-33.0 8 mean corpuscular volume, RBC 89 fL [facility] 79-97 8 hematocrit, blood 39.1 % [facility] 34.0-46.6 8 hemoglobin, blood 12.6 g/dL [facility] 11.1-15.9 8 erythrocyte (RBC) count 4.38 X10E6/UL [facility] 3.77-5.28 8 leukocyte count, blood 6.9 X10E3/UL [facility] 3.4-10.8 2 lipoprotein, beta, serum, point, quantitative, calculated 99 mg/dL [facility] 0-99 2 HDL cholesterol, serum 59 mg/dL LinkLogic >39 2 triglyceride, serum, random 79 mg/dL [facility] 0-149 2 cholesterol, serum 173 mg/dL [facility] 100-199 HISTORY OF MEDICATION USE Medication Status Instructions Dates Provider Indications Com ments pantoprazole 40 mg tablet,delayed release (DR/EC) active Patti Krishnamurthy MD sotalol 80 mg tablet completed Take 1/2 tablet by mouth twice a day Agatha Vargas sotalol 80 mg tablet completed TAKE ONE-HALF TABLET BY MOUTH TWICE DAILY - Patti Krishnamurthy MD isosorbide mononitrate 30 mg tablet extended release 24 hr completed TAKE 1 TABLET BY MOUTH ONCE DAILY - Michael Jones sotalol 80 mg tablet completed Take 1/2 tablet by mouth twice a day TAKE ONE-HALF TABLET BY MOUTH TWICE DAILY - Jesus White Eliquis 5 mg tablet completed Take 1 tablet by mouth twice a day TAKE 1 TABLET BY MOUTH TWICE DAILY STOP ASPIRIN WHEN ON ELIQUIS. - Ramiro Alvarez MD Eliquis 5 mg tablet completed Take 1 tablet by mouth twice a day TAKE 1 TABLET BY MOUTH TWICE DAILY. START 1 WEEK BEFORE PROCEDURE, STOP ASPIRIN WHEN ON ELIQUIS. - Anirudh Loera RN sotalol 80 mg tablet completed Take 1/2 tablet by mouth twice a day TAKE 1/2 TABLET BY MOUTH TWICE A DAY - Agatha Vargas sotalol 80 mg tablet completed TAKE 1/2 TABLET BY MOUTH TWICE A DAY - Fani Vanegas isosorbide mononitrate 30 mg tablet extended release 24 hr completed Take 1 tablet by mouth once a day - Hailey Aguila Eliquis 5 mg tablet completed TAKE 1 TABLET BY MOUTH TWICE DAILY. START 1 WEEK BEFORE PROCEDURE, STOP ASPIRIN WHEN ON ELIQUIS. - Vikas Skinner flecainide 100 mg tablet completed Take 1 tablet by mouth twice a day - Nedra Ventimiglia MATERIAL WORKER diltiazem HCl 180 mg capsule,extende d release 24hr completed Take 1 capsule by mouth once a day - Nedra Ventimiglia MATERIAL WORKER Eliquis 5 mg tablet completed Take 1 tablet by mouth twice a day - Radha Gomez ezetimibe 10 mg tablet completed - Nedra Ventimiglia MATERIAL WORKER flecainide 100 mg tablet completed - Christina Burgos diltiazem HCl 180 mg capsule,extende d release 24hr completed - Christina uBrgos Eliquis 5 mg tablet completed Take 1 tablet by mouth twice a day start one week before the procedure, stop aspirin when on Eliquis - Ramiro Alvarez MD atorvastatin 40 mg tablet active TAKE 1 TABLET BY MOUTH EVERY DAY Anirudh RODGERS NYQUIL COLD & FLU NIGHT CAPSULE completed as needed - Michael Jones Mucinex DM 60-1,200 mg tablet extended release 12 hr completed as needed - Michael Jones CALTRATE 600+D TABLET completed once a day - Nedra Ventimiglia MATERIAL WORKER CLARITIN 10 MG ORAL CAPSULE completed daily - Agatha Vargas cefdinir 300 mg capsule completed as directed - Nedra Ventimiglia MATERIAL WORKER VITAMIN C TABLET active once a day Agatha Vargas Krill Oil ([place] 3 and 6) 1000-130(40-80) mg capsule active once a day Agatha Vargas FLONASE 50 MCG/ACT NASAL SUSPENSION active as directed Agatha Vargas Restasis MultiDose 0.05% drops active as directed Agatha Vargas SUDOGEST SINUS/ALLERGY 4-60 MG ORAL TABLET completed daily - Agatha Vargas DOCUSATE CALCIUM CAPSULE active once a day Christina Burgos PRILOSEC 20 MG ORAL CAPSULE DELAYED RELEASE completed once a day - Patti Krishnamurthy MD HYZAAR 100-12.5 MG ORAL TABLET completed daily - Agatha Vargas ASPIRIN 81 MG ORAL TABLET active 1 tablet once a day Christina Burgos SOCIAL HISTORY Date Observation Value Provider drug use none Frankie Santoyo smoking status Never smoker Frankie Santoyo drug use none Michael Jones smoking status Never smoker Michael Jones drug use none Michael Jones smoking status Never smoker Michael capricekelly number of grandchildren Ramiro Alvarez MD social history reviewed E&M revi ewed - no changes required Nissa Ambriz social history E&M Marital Statu s: Smoking History: P becca has never smoked. Nissa Ambriz smoking status Never smoker Christina Loyola smoking status Never smoker Sam mcfarlane social history reviewed E&M revi ewed - no changes required Sam Vargas social history E&M Marital Statu s: Smoking History: P becca has never smoked. Michael Jones social history reviewed E&M revi ewed - no changes required Michael Jones smoking status Never smoker Agatha Thomas mcfarlane smoking status Never smoker Christina Weinstein and social history E&M Marital Statu s: Smoking History: P atdaryl has never smoked. Abbey Schultz social history reviewed E&M revi ewed - no changes required Abbey Schultz smoking status Never smoker Christina Js and social history E&M Marital Statu s: Smoking History: P becca has never smoked. Frankie Santoyo social history reviewed E&M revi ewed - no changes required Frankie Santoyo smoking status Never smoker Fab butler social history E&M Marital Statu s: Smoking History: P becca has never smoked. Patti Krishnamurthy MD social history reviewed E&M revi ewed - no changes required Patti Krishnamurthy MD smoking status Never smoker Edna Jose Antonio beyer number of grandchildren Patti Krishnamurthy MD T taylor Krishnamurthy MD social history E&M Marital Statu s: Smoking History: P becca has never smoked. Patti Krishnamurthy MD social history reviewed E&M revi ewed - no changes required Patti Krishnamurthy MD drug use none Agatha Davy lder smoking status Never smoker Agatha mcfarlane social history reviewed E&M revi ewed - no changes required Patti Krishnamurthy MD drug use none Agatha Bhatti lder smoking status Never smoker Agatha mcfarlane social history E&M Marital Status: Fredy Krishnamurthy MD drug use none Patti Krishnamurthy MD social history reviewed E&M reviewed Patti Krishnamurthy MD smoking status never smoker Brook beyer FUNCTIONAL STATUS Date Observation Value Provider HRA, CV Assess/Plan, Angina (inactive) Management Plan continue current therapy Frankie Santoyo HRA, CV Assess/Plan, Angina (inactive) Management Plan continue current therapy Michael Ahmedzai HRA, CV Assess/Plan, Angina (inactive) Management Plan continue current therapy Michael Ahmedzai HRA, CV Assess/Plan, Angina (inactive) Management Plan continue current therapy Nissaferoz Ambriz HRA, CV Assess/Plan, Angina (inactive) Management Plan continue current therapy Sam Vargas HRA, CV Assess/Plan, Angina (inactive) Management Plan continue current therapy Michael Ahmedzai HRA, CV Assess/Plan, Angina (inactive) Management Plan antianginal therapy Nedra Ventimiglia MATERIAL WORKER HRA, CV Assess/Plan, Angina (inactive) Management Plan continue current therapy Abbey Schultz HRA, CV Assess/Plan, Angina (inactive) Management Plan continue current therapy Patti Krishnamurthy MD HRA, CV Assess/Plan, Angina (inactive) Management Plan continue current therapy Patti Krishnamurthy MD MENTAL STATUS Date Observation Value Provider assessment of judgme nt and insight E&M Alert and oriented to time, place and person. Mood and affect are normal. Patti Krishnamurthy MD INSURANCE PROVIDERS Payer name Policy type / Coverage type [place] red democrat ID [employer] MED[employer]ARE [employer]AGE ST 0 003 (HMO POS) Medicare [id number] ADVANCE DIRECTIVES Name Date DISCUSSED - NO DECISION MADE TREATMENT PLAN Date Name Performer [id number],Ramona Santana MD is monitoring. OZEMPIC is planned. will defer for O rders: P yuli 21+ (CPT-67177) Ramiro Alvarez MD [id number],C, Ramiro parrish MD [id number],C, O rders: P yuli 21+ (CPT-[id number]) Ramiro Alvarez MD [id number],B, H er updated medication list for this problem includes: Sotalol 80 Mg Tablet (Sotalol) ..... Take 1/2 tablet by mouth twice a day take 1/2 tablet by mouth twice a day Isosorbide Mononitrate 30 Mg Tablet Extended Release 24 Hr (Isosorbide mononitrate) ..... Take 1 tablet by mouth once a day Amlodipine 5 Mg Tablet (Amlodipine) ..... Take 1 tablet by mouth every night Ramiro Alvarez MD [id number],C, H er updated medication list for this problem includes: Sotalol 80 Mg Tablet (Sotalol) ..... Take 1/2 tablet by mouth twice a day take 1/2 tablet by mouth twice a day Amlodipine 5 Mg Tablet (Amlodipine) ..... Take 1 tablet by mouth every night Ramiro Alvarez MD [id number],C, H er updated medication list for this problem includes: Sotalol 80 Mg Tablet (Sotalol) ..... Take 1/2 tablet by mouth twice a day take 1/2 tablet by mouth twice a day Isosorbide Mononitrate 30 Mg Tablet Extended Release 24 Hr (Isosorbide mononitrate) ..... Take 1 tablet by mouth once a day Amlodipine 5 Mg Tablet (Amlodipine) ..... Take 1 tablet by mouth every night Orders: P yuli 21+ (CPT-00444) Ramiro Alvarez MD [id number],B,N O A. FIB - STOP LIQUIS, start 81 mg PO daily d o 1 week telecentry monitor dt. Krishnamurthy to read in 1 year Please schedule a follow-up appointment with Dr. Krishnamurthy in 6 months and bring all medication bottles with you. Ramona bustamante schedule a follow-up appointment with me in 1 year and bring all medication bottles with you. please sent clearance for eye surgery. okay to stop aspirin for 5 days before that Her updated medication list for this problem includes: Sotalol 80 Mg Tablet (Sotalol) ..... Take 1/2 tablet by mouth twice a day take 1/2 tablet by mouth twice a day Orders: P yuli 21+ (CPT-71467) Ramiro Alvarez MD [id number],C, B P today: 150/77 P rior BP: 117/70 (01/26/2023) Her updated medication list for this problem includes: Sotalol 80 Mg Tablet (Sotalol) ..... Take 1/2 tablet by mouth twice a day take 1/2 tablet by mouth twice a day Amlodipine 5 Mg Tablet (Amlodipine) ..... Take 1 tablet by mouth every night Nissa Ambriz [id number],C,S table, no cp O rders: 9 9215 HIGH 40-54min (CPT-80253) M onitor - Telemetry (Mobile Cardiac) (CPT-36347) Nissa Ambriz [id number],C, P becca had cath earlier this year that showed 30% LAD and 50-60% RCA stenosis. Her updated medication list for this problem includes: Sotalol 80 Mg Tablet (Sotalol) ..... Take 1/2 tablet by mouth twice a day take 1/2 tablet by mouth twice a day Isosorbide Mononitrate 30 Mg Tablet Extended Release 24 Hr (Isosorbide mononitrate) ..... Take 1 tablet by mouth once a day Amlodipine 5 Mg Tablet (Amlodipine) ..... Take 1 tablet by mouth every night Nissa Ambriz [id number],C, N o atrial flutters since ablation. H er updated medication list for this problem includes: Sotalol 80 Mg Tablet (Sotalol) ..... Take 1/2 tablet by mouth twice a day take 1/2 tablet by mouth twice a day Nissa Ambriz [id number],C,J une 2022 W ill repeat holter monitor ramona becca is s/p ablation. recent monitor showed no svt, afib, or aflutter. She had rare PVCs noted. No c/o palpitations. She has however, had LE edema with CCB. Have discussed with Dr. Alvarez who recommends stopping flecainide and diltiazem. We will begin sotalol in place. Will continue on Eliquis at this time. Will f/u in 3 months or sooner if needed. she will have updated CMP with primary in 4 weeks. H er updated medication list for this problem includes: Sotalol 80 Mg Tablet (Sotalol) ..... Take 1/2 tablet by mouth twice a day take 1/2 tablet by mouth twice a day Isosorbide Mononitrate 30 Mg Tablet Extended Release 24 Hr (Isosorbide mononitrate) ..... Take 1 tablet by mouth once a day O rders: 9 9215 HIGH 40-54min (CPT-92711) Nissa Ambriz [id number],C, D yspnea on exertion. H er updated medication list for this problem includes: Sotalol 80 Mg Tablet (Sotalol) ..... Take 1/2 tablet by mouth twice a day take 1/2 tablet by mouth twice a day Sam Vargas [id number],C, H as chest pain accompanies by SOB with exertion. Sam Vargas [id number],C, H er updated medication list for this problem includes: Sotalol 80 Mg Tablet (Sotalol) ..... Take 1/2 tablet by mouth twice a day take 1/2 tablet by mouth twice a day BP today: 117/70 P rior BP: 151/87 (07/28/2022) Labs Reviewed: C hol: 173 (04/14/2022) HDL: 59 (04/14/2022) Sam Vargas [id number],C, p atient is s/p ablation. recent monitor showed no svt, afib, or aflutter. She had rare PVCs noted. No c/o palpitations. She has however, had LE edema with CCB. Have discussed with Dr. Alvarez who recommends stopping flecainide and diltiazem. We will begin sotalol in place. Will continue on Eliquis at this time. Will f/u in 3 months or sooner if needed. she will have updated CMP with primary in 4 weeks. Her updated medication list for this problem includes: Sotalol 80 Mg Tablet (Sotalol) ..... Take 1/2 tablet by mouth twice a day take 1/2 tablet by mouth twice a day Isosorbide Mononitrate 30 Mg Tablet Extended Release 24 Hr (Isosorbide mononitrate) ..... Take 1 tablet by mouth once a day Sam Sam [id number],C, N o atrial flutters since ablation. EKG today showed sinus rhythm. Her updated medication list for this problem includes: Sotalol 80 Mg Tablet (Sotalol) ..... Take 1/2 tablet by mouth twice a day take 1/2 tablet by mouth twice a day Sam Sam [id number],C,M arked SOB on exertion which is something she did not experience before her Ablation per her report. We will adjust her medications, will also check VQ scan to rule out emoboli. Michael Jones [id number],C,per PCP Michael Jones [id number],C, L ifestyle modification encouraged. Michael Jones [id number],C,S tart Amlodipine 10 mg once daily B P today: 151/87 P rior BP: 147/84 (04/28/2022) Labs Reviewed: C hol: 173 (04/14/2022) HDL: 59 (04/14/2022) Michael Jones [id number],C, H er updated medication list for this problem includes: Sotalol 80 Mg Tablet (Sotalol) ..... Take 1/2 tablet by mouth twice a day Michael Jones [id number],C, P atient had cath earlier this year that showed 30% LAD and 50-60% RCA stenosis. Michael Jones [id number],C, T he following medications were removed from the medication list: Flecainide 100 Mg Tablet (Flecainide) ..... Take 1 tablet by mouth twice a day Her updated medication list for this problem includes: Sotalol 80 Mg Tablet (Sotalol) ..... 1 tablet by mouth twice a day Orders: E KG (CPT-84123) 9 9212 Minor 10-19min (CPT-62878) Ramiro Alvarez MD [id number],C,primary manag es Ramiro Alvarez MD [id number],S,L ifestyle modification encouraged. Nedra Billings [facility] [id number],S,B P slightly elevated in office today. Patient reports better controlled at home. Will add imdur and monitor. T he following medications were removed from the medication list: Diltiazem Hcl 180 Mg Capsule,extended Release 24hr (Diltiazem hcl) ..... Take 1 capsule by mouth once a day Her updated medication list for this problem includes: Sotalol 80 Mg Tablet (Sotalol) ..... 1 tablet by mouth twice a day Nedra Awa [facility] [id number],W,P becca had cath earlier this year that showed 30% LAD and 50-60% RCA stenosis. She has had 2 episodes of chest pain over the last couple of weeks. Labs, CT chest and EKGs have been without acute finding. We will add imdur to regimen, increase statin dose and monitor. She will f/u in 3 months or sooner if needed. T he following medications were removed from the medication list: Diltiazem Hcl 180 Mg Capsule,extended Release 24hr (Diltiazem hcl) ..... Take 1 capsule by mouth once a day Her updated medication list for this problem includes: Sotalol 80 Mg Tablet (Sotalol) ..... 1 tablet by mouth twice a day Isosorbide Mononitrate 30 Mg Tablet Extended Release 24 Hr (Isosorbide mononitrate) ..... 1 tablet by mouth once a day Nedra Billings [facility] [id number],S,p atient is s/p ablation. recent monitor showed no svt, afib, or aflutter. She had rare PVCs noted. No c/o palpitations. She has however, had LE edema with CCB. Have discussed with Dr. Alvarez who recommends stopping flecainide and diltiazem. We will begin sotalol in place. Will continue on Eliquis at this time. Will f/u in 3 months or sooner if needed. she will have updated CMP with primary in 4 weeks. T he following medications were removed from the medication list: Flecainide 100 Mg Tablet (Flecainide) ..... Take 1 tablet by mouth twice a day Diltiazem Hcl 180 Mg Capsule,extended Release 24hr (Diltiazem hcl) ..... Take 1 capsule by mouth once a day Her updated medication list for this problem includes: Sotalol 80 Mg Tablet (Sotalol) ..... 1 tablet by mouth twice a day Isosorbide Mononitrate 30 Mg Tablet Extended Release 24 Hr (Isosorbide mononitrate) ..... 1 tablet by mouth once a day Nedra Billings [facility] [id number],C, O rders: L IPID PANEL (7600) Abbye Schultz [id number],C, B P today: 120/70 P rior BP: 130/72 (12/27/2021) Her updated medication list for this problem includes: Diltiazem Hcl 180 Mg Capsule,extended Release 24hr (Diltiazem hcl) Abbey Schultz [id number],C, D uring ablation procedure, atrial flutter and one episode of afib was induced. Today she is asymptomatic and her EKG shows NSR. We will continue another ablation for her aflutter. Abbey Schultz [id number],C, P t is s/p ablation procedure. No further episodes of SVT, currently in NSR on EKG. We will consider ILR implanation to continue monitoring her arrhythmias if she continues to be symptomatic. Abbey Schultz [id number],S, H er updated medication list for this problem includes: Aspirin 81 Mg Oral Tablet (Aspirin) ..... One tab. daily Ramiro Alvarez MD [id number],C, Savasiliyus Emperatriz parrish MD [id number],C, Saulius Miltonv shivani MAYER [id number],W, H er updated medication list for this problem includes: Aspirin 81 Mg Oral Tablet (Aspirin) ..... One tab. daily Ramiro Alvarez MD [id number],W, Ramiro parrish MD Cardiology Patti Krishnamurthy MD Cardiology Patti Krishnamurthy MD Cardiology Patti Krishnamurthy MD Cardiology Patti Krishnamurthy MD Cardiology Patti Krishnamurthy MD Cardiology:This visi t has been a part of the consistent, comprehensive, and ongoing management of the chronic medical condition(s) listed above for the patient. Patti Krishnamurthy MD Cardiology:Will schedule for a p et stress Patti Krishnamurthy MD Electrophysiology: H er updated medication list for this problem includes: Sotalol 80 Mg Tablet (Sotalol) ..... Take 1/2 tablet by mouth twice a day Ramiro Alvarez MD Electrophysiology: H er updated medication list for this problem includes: Sotalol 80 Mg Tablet (Sotalol) ..... Take 1/2 tablet by mouth twice a day Ramiro Alvarez MD Electrophysiology:DO ING well on SOTALOL P lease schedule a follow-up appointment with me in 1 year and bring all medication bottles with you.keep fu with Dr. Raghu Amandatalol 80 Mg Tablet (Sotalol) ..... Take 1/2 tablet by mouth twice a day Orders: 9211 Minor 10-19min (CPT-78668) E KG (CPT-46115) C omplex e/m visit add on (G2211) S chedule Followup (*) Ramiro Alvarez MD Electrophysiology:ca odalys tricuspid isthmus fluuter ablation 2021. Orders: 9213 MOD 30-39min (CPT-45119) M onitor - Telemetry (Mobile Cardiac) (CPT-72842) Michael Jones Electrophysiology:Ca th 2021 I MPRESSION 1 . One-vessel coronary artery disease. 2 . Normal left ventricular systolic function Michael ashley Electrophysiology:Mo nitor BP at home, goal BP is <135/85 BP today: 154/89 P rior BP: 179/89 (07/02/2024) Labs Reviewed: C reat: 0.67 (06/26/2024) C hol: 150 (06/26/2024) HDL: 41 (06/26/2024) LDL: 88 (06/26/2024) T (06/26/2024) Her updated medication list for this problem includes: Sotalol 80 Mg Tablet (Sotalol) ..... Take 1/2 tablet by mouth twice a day Michael Jones Electrophysiology:De nies CP or SOB. Michaelkatie Jones Electrophysiology:Myra fair has resumed Sotalol and is doing better on it, will continue this for now as she is doing well. If needed she may increase her sotalol 80 mg half tab to one full tab BID. Orders: 9213 MOD 30-39min (CPT-78863) Michaelkatie Jones Electrophysiology: H er updated medication list for this problem includes: Atorvastatin 40 Mg Tablet (Atorvastatin) ..... Take 1 tablet by mouth every day Michael Jones Cardiology Patti Krishnamurthy MD Cardiology Patti Krishnamurthy MD Cardiology Patti Krishnamurthy MD Cardiology Patti Krishnamurthy MD Electrophysiology:in january, she had work up in [facility] Electrophysiology: H er updated medication list for this problem includes: Atorvastatin 40 Mg Tablet (Atorvastatin) ..... Take 1 tablet by mouth every day [facility] Electrophysiology:I reviewed the importance of lifestyle and dietary modification with the patient. [facility] Electrophysiology:wi ll stop her imdur, advised her to monitor BP BP today: 128/84 P rior BP: 150/77 (02/09/2023) Labs Reviewed: C reat: 0.59 (01/28/2023) C hol: 138 (01/28/2023) HDL: 45 (01/28/2023) LDL: 74 (01/28/2023) T (01/28/2023) Her updated medication list for this problem includes: Sotalol 80 Mg Tablet (Sotalol) ..... Take one-half tablet by mouth twice daily Amlodipine 5 Mg Tablet (Amlodipine) ..... Take 1 tablet by mouth every night [facility] Electrophysiology: H er updated medication list for this problem includes: Sotalol 80 Mg Tablet (Sotalol) ..... Take one-half tablet by mouth twice daily Amlodipine 5 Mg Tablet (Amlodipine) ..... Take 1 tablet by mouth every night [facility] Electrophysiology: T he following medications were removed from the medication list: Isosorbide Mononitrate 30 Mg Tablet Extended Release 24 Hr (Isosorbide mononitrate) ..... Take 1 tablet by mouth once daily Her updated medication list for this problem includes: Sotalol 80 Mg Tablet (Sotalol) ..... Take one-half tablet by mouth twice daily Amlodipine 5 Mg Tablet (Amlodipine) ..... Take 1 tablet by mouth every night Patient had cath that showed 30% LAD and 50-60% RCA stenosis. 12/2021 Her updated medication list for this problem includes: Sotalol 80 Mg Tablet (Sotalol) ..... Take 1/2 tablet by mouth twice a day take 1/2 tablet by mouth twice a day Isosorbide Mononitrate 30 Mg Tablet Extended Release 24 Hr (Isosorbide mononitrate) ..... Take 1 tablet by mouth once a day Amlodipine 5 Mg Tablet (Amlodipine) ..... Take 1 tablet by mouth every night Michaelkatie Riverakelly Electrophysiology: w [facility] Elect[facility]:no AFIB or flu tter on holter [facility] Telehealth:PMD is mo nitoring. OZEMPIC is planned. will defer for O rders: P yuli 21+ (CPT-67487) Ramiro Alvarez MD Telehealth Ramiro santana MD Telehealth: O rders: P yuli 21+ (CPT-54214) Ramiro Alvarez MD Telehealth: H er updated medication list for this problem includes: Sotalol 80 Mg Tablet (Sotalol) ..... Take 1/2 tablet by mouth twice a day take 1/2 tablet by mouth twice a day Isosorbide Mononitrate 30 Mg Tablet Extended Release 24 Hr (Isosorbide mononitrate) ..... Take 1 tablet by mouth once a day Amlodipine 5 Mg Tablet (Amlodipine) ..... Take 1 tablet by mouth every night Ramiro Alvarez MD Telehealth: H er updated medication list for this problem includes: Sotalol 80 Mg Tablet (Sotalol) ..... Take 1/2 tablet by mouth twice a day take 1/2 tablet by mouth twice a day Amlodipine 5 Mg Tablet (Amlodipine) ..... Take 1 tablet by mouth every night Ramiro Alvarez MD Telehealth: H er updated medication list for this problem includes: Sotalol 80 Mg Tablet (Sotalol) ..... Take 1/2 tablet by mouth twice a day take 1/2 tablet by mouth twice a day Isosorbide Mononitrate 30 Mg Tablet Extended Release 24 Hr (Isosorbide mononitrate) ..... Take 1 tablet by mouth once a day Amlodipine 5 Mg Tablet (Amlodipine) ..... Take 1 tablet by mouth every night Orders: P yuli 21+ (CPT-19370) Ramiro Alvarez MD Telehealth:NO Janelle. FIB - STOP LIQUIS, start 81 mg PO daily d o 1 week telecentry monitor dt. Krishnamurthy to read in 1 year Please schedule a follow-up appointment with Dr. Krishnamurthy in 6 months and bring all medication bottles with you. Ramona bustamante schedule a follow-up appointment with me in 1 year and bring all medication bottles with you. please sent clearance for eye surgery. okay to stop aspirin for 5 days before that Her updated medication list for this problem includes: Sotalol 80 Mg Tablet (Sotalol) ..... Take 1/2 tablet by mouth twice a day take 1/2 tablet by mouth twice a day Orders: P yuli 21+ (CPT-46443) Ramiro Alvarez MD Electrophysiology: B P today: 150/77 P rior BP: 117/70 (01/26/2023) Her updated medication list for this problem includes: Sotalol 80 Mg Tablet (Sotalol) ..... Take 1/2 tablet by mouth twice a day take 1/2 tablet by mouth twice a day Amlodipine 5 Mg Tablet (Amlodipine) ..... Take 1 tablet by mouth every night Nissa Ambriz Electrophysiology:St able, no cp O rders: 9 9215 HIGH 40-54min (CPT-83593) M onitor - Telemetry (Mobile Cardiac) (CPT-50138) Ramiro Alvarez MD Electrophysiology: Ramona hudson had cath earlier this year that showed 30% LAD and 50-60% RCA stenosis. Her updated medication list for this problem includes: Sotalol 80 Mg Tablet (Sotalol) ..... Take 1/2 tablet by mouth twice a day take 1/2 tablet by mouth twice a day Isosorbide Mononitrate 30 Mg Tablet Extended Release 24 Hr (Isosorbide mononitrate) ..... Take 1 tablet by mouth once a day Amlodipine 5 Mg Tablet (Amlodipine) ..... Take 1 tablet by mouth every night Ramiro Alvarez MD Electrophysiology: N o atrial flutters since ablation. H er updated medication list for this problem includes: Sotalol 80 Mg Tablet (Sotalol) ..... Take 1/2 tablet by mouth twice a day take 1/2 tablet by mouth twice a day Ramiro Alvarez MD Electrophysiology:Ju ne 2022 W ill repeat holter monitor p atient is s/p ablation. recent monitor showed no svt, afib, or aflutter. She had rare PVCs noted. No c/o palpitations. She has however, had LE edema with CCB. Have discussed with Dr. Alvarez who recommends stopping flecainide and diltiazem. We will begin sotalol in place. Will continue on Eliquis at this time. Will f/u in 3 months or sooner if needed. she will have updated CMP with primary in 4 weeks. H er updated medication list for this problem includes: Sotalol 80 Mg Tablet (Sotalol) ..... Take 1/2 tablet by mouth twice a day take 1/2 tablet by mouth twice a day Isosorbide Mononitrate 30 Mg Tablet Extended Release 24 Hr (Isosorbide mononitrate) ..... Take 1 tablet by mouth once a day O rders: 9 9215 HIGH 40-54min (CPT-01953) Ramiro Alvarez MD Electrophysiology: D yspnea on exertion. H er updated medication list for this problem includes: Sotalol 80 Mg Tablet (Sotalol) ..... Take 1/2 tablet by mouth twice a day take 1/2 tablet by mouth twice a day Sam Vargas Electrophysiology: H as chest pain accompanies by SOB with exertion. Sam Vargas Electrophysiology: H er updated medication list for this problem includes: Sotalol 80 Mg Tablet (Sotalol) ..... Take 1/2 tablet by mouth twice a day take 1/2 tablet by mouth twice a day BP today: 117/70 P rior BP: 151/87 (07/28/2022) Labs Reviewed: C hol: 173 (04/14/2022) HDL: 59 (04/14/2022) Sam Grlyndsey Electrophysiology: p atient is s/p ablation. recent monitor showed no svt, afib, or aflutter. She had rare PVCs noted. No c/o palpitations. She has however, had LE edema with CCB. Have discussed with Dr. Alvarez who recommends stopping flecainide and diltiazem. We will begin sotalol in place. Will continue on Eliquis at this time. Will f/u in 3 months or sooner if needed. she will have updated CMP with primary in 4 weeks. Her updated medication list for this problem includes: Sotalol 80 Mg Tablet (Sotalol) ..... Take 1/2 tablet by mouth twice a day take 1/2 tablet by mouth twice a day Isosorbide Mononitrate 30 Mg Tablet Extended Release 24 Hr (Isosorbide mononitrate) ..... Take 1 tablet by mouth once a day Sam Sam Electrophysiology: N o atrial flutters since ablation. EKG today showed sinus rhythm. Her updated medication list for this problem includes: Sotalol 80 Mg Tablet (Sotalol) ..... Take 1/2 tablet by mouth twice a day take 1/2 tablet by mouth twice a day Sam Sam Electrophysiology:Jolynn rked SOB on exertion which is something she did not experience before her Ablation per her report. We will adjust her medications, will also check VQ scan to rule out emoboli. Michael Jones Electrophysiology:per PCP Michael martell Electrophysiology: L ifestyle modification encouraged. Michael Jones Electrophysiology:St art Amlodipine 10 mg once daily B P today: 151/87 P rior BP: 147/84 (04/28/2022) Labs Reviewed: C hol: 173 (04/14/2022) HDL: 59 (04/14/2022) Michael Jones Electrophysiology: H er updated medication list for this problem includes: Sotalol 80 Mg Tablet (Sotalol) ..... Take 1/2 tablet by mouth twice a day Michael Jones Electrophysiology: Ramona hudson had cath earlier this year that showed 30% LAD and 50-60% RCA stenosis. Michael Jones Electrophysiology: T cisco following medications were removed from the medication list: Flecainide 100 Mg Tablet (Flecainide) ..... Take 1 tablet by mouth twice a day Her updated medication list for this problem includes: Sotalol 80 Mg Tablet (Sotalol) ..... 1 tablet by mouth twice a day Orders: E KG (CPT-78143) 9 9212 Minor 10-19min (CPT-40656) Ramiro Alvarez MD Electrophysiology:primary manage s Ramiro Alvarez MD Electrophysiology:Li juliettyle modification encouraged. Nedramima Billings [facility] Electrophysiology:BP slightly elevated in office today. Patient reports better controlled at home. Will add imdur and monitor. T he following medications were removed from the medication list: Diltiazem Hcl 180 Mg Capsule,extended Release 24hr (Diltiazem hcl) ..... Take 1 capsule by mouth once a day Her updated medication list for this problem includes: Sotalol 80 Mg Tablet (Sotalol) ..... 1 tablet by mouth twice a day Nedramima Billings [facility] Electrophysiology:Carlton gtz had cath earlier this year that showed 30% LAD and 50-60% RCA stenosis. She has had 2 episodes of chest pain over the last couple of weeks. Labs, CT chest and EKGs have been without acute finding. We will add imdur to regimen, increase statin dose and monitor. She will f/u in 3 months or sooner if needed. T he following medications were removed from the medication list: Diltiazem Hcl 180 Mg Capsule,extended Release 24hr (Diltiazem hcl) ..... Take 1 capsule by mouth once a day Her updated medication list for this problem includes: Sotalol 80 Mg Tablet (Sotalol) ..... 1 tablet by mouth twice a day Isosorbide Mononitrate 30 Mg Tablet Extended Release 24 Hr (Isosorbide mononitrate) ..... 1 tablet by mouth once a day Nedramima Billings [facility] Electrophysiology:carlton gtz is s/p ablation. recent monitor showed no svt, afib, or aflutter. She had rare PVCs noted. No c/o palpitations. She has however, had LE edema with CCB. Have discussed with Dr. Alvarez who recommends stopping flecainide and diltiazem. We will begin sotalol in place. Will continue on Eliquis at this time. Will f/u in 3 months or sooner if needed. she will have updated CMP with primary in 4 weeks. T he following medications were removed from the medication list: Flecainide 100 Mg Tablet (Flecainide) ..... Take 1 tablet by mouth twice a day Diltiazem Hcl 180 Mg Capsule,extended Release 24hr (Diltiazem hcl) ..... Take 1 capsule by mouth once a day Her updated medication list for this problem includes: Sotalol 80 Mg Tablet (Sotalol) ..... 1 tablet by mouth twice a day Isosorbide Mononitrate 30 Mg Tablet Extended Release 24 Hr (Isosorbide mononitrate) ..... 1 tablet by mouth once a day Kingston Raulglkirsten [facility] Cardiology: O rders: L IPID PANEL (6950) Abbey Schultz Cardiology: B P today: 120/70 P rior BP: 130/72 (12/27/2021) Her updated medication list for this problem includes: Diltiazem Hcl 180 Mg Capsule,extended Release 24hr (Diltiazem hcl) Abbey Schultz Cardiology: D uring ablation procedure, atrial flutter and one episode of afib was induced. Today she is asymptomatic and her EKG shows NSR. We will continue another ablation for her aflutter. Abbey Schultz Cardiology: P t is s/p ablation procedure. No further episodes of SVT, currently in NSR on EKG. We will consider ILR implanation to continue monitoring her arrhythmias if she continues to be symptomatic. Abbey Schultz EP: H er updated medication list for this problem includes: Aspirin 81 Mg Oral Tablet (Aspirin) ..... One tab. daily Ramiro Alvarez MD EP Ramiro santana MD EP Ramiro santana MD EP: H er updated medication list for this problem includes: Aspirin 81 Mg Oral Tablet (Aspirin) ..... One tab. daily Ramiro Alvarez MD EP Ramiro santana MD Cardiology Patti Krishnamurthy MD Cardiology Patti Krishnamurthy MD Cardiology Patti Krishnamurthy MD Cardiology Patti Krishnamurthy MD Cardiology Patti Krishnamurthy MD Cardiology Patti Krishnamurthy MD Cardiology Follow up Patti donaldson MD Cardiology Follow up Patti donaldson MD Cardiology Follow up :CT coronary calcium with score 406 - LAD 135, Circ 271. Patti Krishnamurthy MD Cardiology Hospital Follow up To samir Krishnamurthy MD Cardiology Hospital Follow up To samir Krishnamurthy MD Cardiology Hospital Follow up To samir Krishnamurthy MD Cardiology Hospital Follow up To samir Krishnamurthy MD follow up: H er updated medication list for this problem includes: Aspirin 81 Mg Tabs (Aspirin) ..... One tab. daily Hyzaar 100-12.5 Mg Tabs (Losartan potassium-hctz) ..... Daily BP today: 110/70 Patti Krishnamurthy MD follow up Patti Krishnamurthy MD follow up: H er updated medication list for this problem includes: Aspirin 81 Mg Tabs (Aspirin) ..... One tab. daily Orders: E KG ([id number]) Patti Krishnamurthy MD Date Name myocardial blood kris w (PET) Stress Cardiac PET-C T Monitor - Telemetry (Mobile Cardiac) Complete Echo Complete Echo Monitor - Telemetry (Mobile Cardiac) CBC (INCLUDES DIFF/P LT) HEMOGLOBIN A1c LIPID PANEL COMPREHENSIVE METABO LIC PANEL, W/EGFR Monitor - Telemetry (Mobile Cardiac) Monitor - Telemetry (Mobile Cardiac) Stress Regadenoson PROBNP, N TERMINAL Partial Thromboplast in Time, Activated LIPID PANEL TSH, free T4, total T3 CBC (INCLUDES DIFF/P LT) HEMOGLOBIN A1c COMPREHENSIVE METABO LIC PANEL, W/EGFR Complete Echo DLCO - 11315 FRC - 26110 FVC - 02475 NM, Lung Ventilation DLCO - 12979 FRC - 17175 FVC - 84112 Monitor - Telemetry (Mobile Cardiac) LIPID PANEL CT Cardiac with cont rast (Pre-Ablation) RPM (remote patient monitoring) ABLATION w/ Anesthes ia LIPID PANEL COMPREHENSIVE METABO LIC PANEL, W/EGFR CT, Coronary Calcium Score Mobile Cardiac Tele Complete Echo HISTORY OF PROCEDURES Procedure Date Procedure Name Provider Procedure Notes S tatus Complex e/m visit add on Patti Krishnamurthy MD completed Schedule Followup Ramiro Alvarez MD 1 year w with SK completed Complex e/m visit add on Ramiro Alvarez MD completed EKG Ramiro Alvarez MD comp leted Complex e/m visit add on Patti Krishnamurthy MD completed EKG Ramiro Alvarez MD comp leted EKG Ramiro Alvarez MD comp leted EKG Ford Cross MD complet ed EKG Ramiro Alvarez MD comp leted EKG Ramiro Alvarez MD comp leted Spirometry Ramiro Alvarez MD comp leted FVC / MVV with bronchodilator and 6min walk/titration Ramiro Alvarez MD completed BLOOD COUNT HEMOGLOBIN Ramiro Alvarez MD completed FRC - 64274 Ramiro Alvarez MD com pleted SpO2 w/o 6min walk/titration Ramiro Alvarez MD completed SVC - 45774 Ramiro Alvarez MD com pleted DLCO - 21164 Ramiro Alvarez MD co mpleted EKG Ramiro Alvarez MD comp leted EKG Ramiro Alvarez MD comp leted Stress EKG Patti Krishnamurthy MD completed Cardiolite, 2 units Ramiro Alvarez MD completed SPECT Images Harley Doan MD completed CT- Coronary CA score Patti Krishnamurthy MD completed Event Monitor Patti Krishnamurthy MD comple kali EKG Patti Krishnamurthy MD completed EKG Patti Krishnamurthy MD completed
--- OUTSIDE RECORDS SUMMARY | 2024-12-31 03:11 | XMS_ITS | Continuity of Care Document ---
Author Organization [facility] Address [address] [place] [address] [address] [place] [address] Phone Care Team Providers Care Parking Cashier Name Role Phone Emeterio Steve Unavailable Unavailable Procedures Procedure Date Eye Exam & Treatment Eye Exam & Treatment Office/outpatient Visit, Est Eye Exam Established Pt Advance Directives Directive Yes / No Effective Date File Name No Information Encounters Encounter Description Practice Location Reason(s) For Visit Diagnoses Date Provider Providers Copied on Encounter [facility], [address] [place] [address] [address], [place], [place], [id number], [place] tel:[phone] SEC [facility] No Information [address] [facility] , [address], [place], [place], [facility], . tel:[phone] [facility], [address] [place] [address] [address], [place], [place], [id number], [place] tel:[phone] SEC [facility] No Information 8 [address]. [address] [facility] , [address], [place], [address], [place]. tel:[phone] Office/outpat ient Visit, Est [facility], [address] [place] [address] [address], [place], [place], [address], [place] tel:[phone] SEC [facility] No Information 2-[address] , [address], [place], [address], [place]. tel:[phone] [facility], [address], [place], [place], [address], [place] tel:[phone] SEC [facility] No Information 7 [address]. [address] [facility] , [address], [place], [address], [place]. tel:[phone] Family History Family Member Type Diagnosis Age At Onset No Information Payers Payer name Insurance type Covered democrat ID Authoriza tion(s) No Information Social History Type Description Quantity Date Captured Comments Sex Female Smoking Status No Information Chief Complaint And Reason For Visit No Information Reason For Referral Reason For Referral No Information History Of Present Illness Encounter Date Complaint History Of Prese nt Illness No Information Functional Status Date Functional Assessmen t No Information Instructions Date Instruction Additional Infor mation No Information Assessments Type Assessment Date No Information Patient Care Teams Name Effective Dates (start - stop) Status Members No Information
--- OUTSIDE RECORDS SUMMARY | 2024-12-31 03:11 | XMS_ITS | Clinical Summary ---
Author Organization [facility] Address [address] [place] [address] Care Team Providers Care Logging Shovel Operator Name Role Phone Ranjeet Quezada MD Primary Care Provider [phone] Ramiro Alvarez MD Unavailable [phone] Allergies Active Allergy Reactions Criticality Noted Date [...] mouth daily 30 capsule 11 2 Active kdjvn-kz3-vjx-e em-rl7-nrb-astx (Krill Oil, [place] 3 and 6,) 1000-130(40-80) mg capsule Take [...] unspecified type 12/15/2021 SVT (supraventricular tachycardia) 12/14/2021 Surgical History Surgery Date Site/Laterality Comments CHOLECYSTECTOMY KNEE ARTHROSCOPY Bilateral Medical History Medical History Date Comments Arthritis PFO (patent foramen ovale) Anxiety SVT (supraventricular tachycardia) Sleep apnea Motion sickness GERD (gastroesophageal reflux disease) Family History Medical History Relation Name Comments Cancer Father lung cancer Heart attack Mother Relation Name Status Comments Father Mother Social History Tobacco Use Types Packs/Day Years [...] week 12/15/2021 How often do you attend chur or zoroastrian services? More than 4 times per year 12/15/2021 Do you belong to any clubs o r organizations such as mandaen groups, unions, fraternal or athletic groups, or [...] on file Legal Sex Female 12:49 PM SSRS REPORT DEVELOPER Gender Identity Female 11/22/2023 12:00 PM CDT Sexual Orientation Not on file Obstetrics History Last Filed Vital Signs Vital Sign Reading Time Taken Comments Blood Pressure 131/80 08/28/2022 2:18 PM SSRS REPORT DEVELOPER Pulse 82 08/28/2022 2:18 PM SSRS REPORT DEVELOPER Temperature 36.7 C (98 F) 08/28/2022 2:18 PM SSRS REPORT DEVELOPER Respiratory Rate 18 08/28/2022 2:18 PM SSRS REPORT DEVELOPER Oxygen Saturation 94% 08/28/2022 2:18 PM SSRS REPORT DEVELOPER Inhaled Oxygen Concentration - - Weight 109.5 kg (241 lb 8 oz) 08/28/2022 2:18 PM SSRS REPORT DEVELOPER Height 165.1 cm (5' 5 ) 08/28/2022 2:18 PM SSRS REPORT DEVELOPER Body Mass Index 40.19 08/28/2022 2:18 PM SSRS REPORT DEVELOPER Plan of Treatment Health Maintenance Due Date Last Done Comments Colon Cancer Screening-Colonoscopy 1955 Depression Screening 1955 Hepatitis C Screening 1955 Hepatitis B Screening 1973 Well Visit 65+ 2020 DTaP/Tdap/Td Vaccine (2 - Tdap) 11/18/2022 3 Fall Risk Assessment 01/13/2023 01/13/2022 Covid-19 Vaccine (2023-2 5 season) 2024 11/24/2021, 06/14/2021, 11/02/2020, Additional history exists Influenza Vaccine (#1) 2024 , 2020, 05/05/2019, Additional history exists Osteoporosis Screening-Bone Density Scan 08/09/2024 08/09/2022, 08/20/2019, 07/11/2017, Additional history exists Breast Cancer Screening-Mammogram 08/28/2025 08/28/2024, 08/14/2023, 08/09/2022, Additional history exists Zoster Vaccine Completed 07/17/2019, 04/14, 11/18/2012 Pneumococcal vaccine 65+ Completed 022, 04/12/2021, 2020, Additional history exists Procedures Procedure Name Priority Date/Time Associated Diagnosis Comments SCREENING MAMMOGRAM BILATERAL W STEFANO Schedule Routine, Read Routine (OP Routine) 08/28/2024 11:16 AM SSRS REPORT DEVELOPER Screening mammogram, encounter for DEXA AXIAL SKELETON BONE DENSITY 1 OR MORE SITES Schedule Routine, Read Routine (OP Routine) 08/09/2022 11:12 AM SSRS REPORT DEVELOPER Asymptomatic menopausal state from Last 3 Months or Most Recently Relevant to Health Maintenance Results * Screening Mammogram Bilateral W Stefano (08/28/2024 11:16 AM SSRS REPORT DEVELOPER) Anatomical Region Laterality Modality Breast Bilateral Mammography Narrative 08/28/2024 12:15 PM SSRS REPORT DEVELOPER Examination: Screening Mammogram Bilateral W Stefano: 08/28/24 [...] 1 or 2 Site (08/09/2022 11:12 AM SSRS REPORT DEVELOPER) Anatomical Region Laterality Modality Body N/A Digital Radiogra phy 08/09/2022 11:4 9 AM SSRS REPORT DEVELOPER Impressions 08/09/2022 11:49 AM SSRS REPORT DEVELOPER Low bone mass (osteopenia) which depending on the clinical circumstances may result in a moderate increased risk of fragility fracture. If followup is to be done, for technical reasons, it should be performed on this same machine. Electronically signed by: Jun Alicia M.D. Narrative 08/09/2022 11:49 AM SSRS REPORT DEVELOPER EXAM: Bone mineral density examination HISTORY: Postmenopausal female. DXA BMD was done at [facility] on a [employer] W. Precision testing at this site is [...] Postmenopausal female. DXA BMD was done at [facility] on a [employer] W. Precision testing at this site is [...] by: Jun Alicia M.D. Matt Marquis MD [facility] DXA PROCEDURES Final Re sult from Last 3 Months or Most Recently Relevant to Health Maintenance [facility] MEDICARE ADVANTAGE [facility] MEDICARE ADVANTAGE [facility] MEDICARE ADVANTAGE Advance Directives For more information, please contact: [phone] Documents on File Type Date Recorded Patient Glass Blower Helper Expl anation ADVANCE DIRECTIVE 01/12/2022 9:56 AM Power of Franchise Specialist-Medical * Full Code (Latest Code Status on File) Date Activated Date Inactivated Comments 12/15/2021 1:49 AM 12/16/2021 5:54 PM Care Teams Logging Shovel Operator Relationship Specialty Start Date End Date Ranjeet Quezada MD [address] [place] [address] PCP - General 08/12/17 Ramiro Alvarez MD [address] [place] [address] Consulting Physician Cardiology 01/13/22
[2024-12-31 03:40] VITALS: BP 123/79; PULSE 72; PULSE 78; RESP 17; TEMP 36.7; O2SAT 100
== END 2024-12-31 05:10 | disposition home or self-care (01) ==
PROVIDERS: Emergency Provider Emergency Medicine; PCP Internal Medicine
DX: I47.10 Supraventricular tachycardia, unspecified (principal); E78.5 Hyperlipidemia, unspecified; E55.9 Vitamin D deficiency, unspecified; R73.03 Prediabetes; G47.33 Obstructive sleep apnea (adult) (pediatric); K21.9 Gastro-esophageal reflux disease without esophagitis; M19.071 Primary osteoarthritis, right ankle and foot; M81.0 Age-related osteoporosis without current pathological fracture; F41.9 Anxiety disorder, unspecified; Z86.16 Personal history of COVID-19; Z79.899 Other long term (current) drug therapy
CPT/HCPCS: 36415; 80048; 84484; 85025; 93005; 99284

== ENCOUNTER 2025-02-18 15:31 | Outpatient (CLI) | payer MEDICARE, SELFPAY ==
--- NOTE | ~2025-02-18 | CT_ITS ---
CT brain wo/w con Ordering provider: Ranjeet Quezada MD History: . Headache . Comparison: July 30, 2020 Technique: CT of the head with and without contrast. The dose-length product was 1210.67 mGy-cm. 75 m L Omnipaque 350 was given IV. FINDINGS: BRAIN PARENCHYMA AND CSF SPACES: Mild leukoaraiosis and diffuse cortical atrophy. Mild atheromatous d isease. No midline shift, mass effect or hemorrhage. Postcontrast images demonstrate no abnormal enh ancement.The brain parenchyma and CSF spaces are otherwise normal. VISUALIZED PARANASAL SINUSES: Well aerated. MASTOIDS: Well aerated. BONES: The bones appear intact. SOFT TISSUES: Visualized nasopharynx is normal. Superficial soft tissues are normal. IMPRESSION: No acute intracranial findings. No abnormal enhancement. Reviewed, dictated and finalized at location A.
--- OUTSIDE RECORDS SUMMARY | 2025-02-18 15:35 | XMS_ITS | Continuity of Care Document ---
Author Organization [facility] Address [address] [place] [address] [address] [place] [address] Phone Care Team Providers Care Service Coordinator Name Role Phone Emeterio Steve Unavailable Unavailable Procedures Procedure Date Eye Exam & Treatment Eye Exam & Treatment Office/outpatient Visit, Est Eye Exam Established Pt Advance Directives Directive Yes / No Effective Date File Name No Information Encounters Encounter Description Practice Location Reason(s) For Visit Diagnoses Date Provider Providers Copied on Encounter [facility], [address] [place] [address] [address], [place], [place], [id number], [place] tel:[phone] [facility] No Information 0 [address]. [address] [facility] , [address], [place], [place], [facility], . tel:[phone] [facility], [address] [place] [address] [address], [place], [place], [address], [place] tel:[phone] SEC [facility] No Information 8 [address]. [address] [facility] , [address], [place], [address], [place]. tel:[phone] Office/outpat ient Visit, Est [facility], [address] [place] [address] [address], [place], [place], [address], [place] tel:[phone] [facility] No Information 2-200 7 [address]. [address] , [address], [place], [address], [place]. tel:[phone] [facility], [address], [place], [place], [address], [place] tel:[phone] SEC [facility] No Information 7 [address]. [address] [facility] [place] , [address], [place], [address], [place]. tel:[phone] Family History Family Member Type Diagnosis Age [...]
--- OUTSIDE RECORDS SUMMARY | 2025-02-18 15:35 | XMS_ITS | Clinical Summary ---
Author Organization [facility] Address [address] [place] [address] Care Team Providers Care Pst Manager Name Role Phone Ranjeet Quezada MD Primary Care Provider [phone] Xavier Mobley MD Unavailable [phone] Source Comments [facility],non-owned Affiliates and Associated Physician Practices is amultiple site organization consisting of ambulatory clinics and hospital sitesin [place], [place], [place]. This disclosure is being madepursuant to the Care Everywhere program and may not contain all information available regarding this patient. Last updated 18.[facility] Allergies Active Allergy Reactions Criticality Noted Date [...] 1 tablet by mouth once daily Active Napoleon-3 Krill Oil 1000 MG Take 1 tablet [...] 3:38 PM CDT Height 162.6 cm (5' 4) 05/23/2021 3:38 PM CDT Body Mass Index [...] 2005 SCREENING FOR DIABETES 05/23/2021 COVID-19 VACCINE (2023- season) 2024 DEPRESSION SCREENING 08/13/2024 INFLUENZA VACCINE (Season Ended) 2025 05/05/2019, 04/05/2018, [...] patient's age to complete this topic Insurance [employer] MANAGED MEDICARE ADV * Guarantor: JILLIAN MASTERS Account Type Relation to Patient Date of Phone Billing Address Personal/Family 1955 [address] * Guarantor: JILLIAN MASTERS Account Type Relation to Patient Date of Phone Billing Address Personal/Family 1955 [address] [employer] Care Teams Pst Manager Relationship Specialty Start Date End Date Ranjeet Quezada MD [address] [place] [id number] PCP - General Internal Medicine 05/23/16 [place] [address] [facility] [address] [address] [place] [address] Surgeon Orthopedic Surgery 05/23/21
--- OUTSIDE RECORDS SUMMARY | 2025-02-18 15:35 | XMS_ITS | Continuity of Care Document ---
Author Organization [facility] Address [address] [place] [address] Phone Care Team Providers Care Shoemaker Custom Name Role Phone Melchor Moreno MD Unavailable [...] Providers Copied on Encounter [facility] , [address] [facility] [address], [facility], tel:[phone] [facility] No Information 7 [address]. [address] [place], [place], [id number] . tel: [phone] [facility] , [address], [address], [phone] [facility] No Information 4 Arabella Velasco. [address] [place], [place], [id number] . tel: [phone] Referring Provider: Lea Markham, [address], [place], [address]. tel:[phone] [facility] , [address] [address], [place], [address], [place] tel:[phone] [facility] Osteoarthros is, unspecified [address]. [address] [place], [place], [id number] . tel: [phone] OFFICE/OUTPAT IENT VISIT [facility] , [address], [address], [place] tel:[phone] [facility] Osteoarthros is, unspecified 4 [address]. [address] [place], [place], [id number] . tel: [phone] Referring Provider: [address], [place], [address]. tel:[phone] OFFICE/OUTPAT IENT VISIT NEW [facility] , [address] [address], [place], [address], [place] tel:[phone] [facility] Hypertension , UnspecifiedO steoarthrosi s, unspecified whether generalized or localized, involving lower leg 3 [address]. [address] [place], [place], [address] . tel: [phone] Referring Provider: [address], [place], [address]. tel:[phone] Family History Family Member Type Diagnosis Age At Onset mother Problem (finding) stroke father Problem (finding) malignant neoplasm of l trish Payers Payer name Insurance type Covered republican ID Authoriza tion(s) No Information Social History [...]
--- OUTSIDE RECORDS SUMMARY | 2025-02-18 15:35 | XMS_ITS | Referral Summary ---
Author Organization [facility] Address [address] [place] [address] Care Team Providers Care Accountant Auditor Name Role Phone Ranjeet Quezada MD Primary Care Provider [phone] Ramiro Alvarez MD Unavailable Allergies Active Allergy Reactions Criticality Noted Date [...] mouth daily 30 capsule 11 2 Active blyds-bj5-egn-e yk-sn8-xtl-astx (Krill Oil, [place] 3 and 6,) 1000-130(40-80) mg capsule Take [...] week 12/15/2021 How often do you attend [facility] or temple services? More than 4 times per year 12/15/2021 Do you belong to any clubs o r organizations such as moravian groups, unions, fraternal or athletic groups, or [...] on file Legal Sex Female 12:49 PM STRETCHER HELPER Gender Identity Female 11/22/2023 12:00 PM CDT Sexual Orientation Not on file Last Filed Vital Signs Vital Sign Reading Time Taken Comments Blood Pressure 131/80 08/28/2022 2:18 PM STRETCHER HELPER Pulse 82 08/28/2022 2:18 PM STRETCHER HELPER Temperature 36.7 C (98 F) 08/28/2022 2:18 PM STRETCHER HELPER Respiratory Rate 18 08/28/2022 2:18 PM STRETCHER HELPER Oxygen Saturation 94% 08/28/2022 2:18 PM STRETCHER HELPER Inhaled Oxygen Concentration - - Weight 109.5 kg (241 lb 8 oz) 08/28/2022 2:18 PM STRETCHER HELPER Height 165.1 cm (5' 5) 08/28/2022 2:18 PM STRETCHER HELPER Body Mass Index 40.19 08/28/2022 2:18 PM STRETCHER HELPER Plan of Treatment Not on file Procedures Procedure Name Priority Date/Time Associated Diagnosis Comments SCREENING MAMMOGRAM BILATERAL W STEFANO Schedule Routine, Read Routine (OP Routine) 08/28/2024 11:16 AM STRETCHER HELPER Screening mammogram, encounter for DEXA AXIAL SKELETON BONE DENSITY 1 OR MORE SITES Schedule Routine, Read Routine (OP Routine) 08/09/2022 11:12 AM STRETCHER HELPER Asymptomatic menopausal state from Last 3 Months or Most Recently Relevant to Health Maintenance Results * Screening Mammogram Bilateral W Stefano (08/28/2024 11:16 AM STRETCHER HELPER) Anatomical Region Laterality Modality Breast Bilateral Mammography Narrative 08/28/2024 12:15 PM STRETCHER HELPER Examination: Screening Mammogram Bilateral W Stefano: 08/28/24 [...] 1 or 2 Site (08/09/2022 11:12 AM STRETCHER HELPER) Anatomical Region Laterality Modality Body N/A Digital Radiogra phy 08/09/2022 11:4 9 AM STRETCHER HELPER Impressions 08/09/2022 11:49 AM STRETCHER HELPER Low bone mass (osteopenia) which depending on the clinical circumstances may result in a moderate increased risk of fragility fracture. If followup is to be done, for technical reasons, it should be performed on this same machine. Electronically signed by: Jun Alicia M.D. Narrative 08/09/2022 11:49 AM STRETCHER HELPER EXAM: Bone mineral density examination HISTORY: Postmenopausal female. DXA BMD was done at [facility] on a [employer] W. Precision testing [...] Postmenopausal female. DXA BMD was done at [facility] on a [employer] W. Precision testing [...] by: Jun Alicia M.D. Matt Marquis MD [facility] DXA PROCEDURES Final Re sult from Last 3 Months or Most Recently Relevant to Health Maintenance Insurance [employer] [facility] UHC MEDICARE ADVANTAGE [facility] MEDICARE ADVANTAGE [facility] MEDICARE ADVANTAGE Advance Directives For more information, please contact: [phone] Documents on File Type Date Recorded Patient Route Inspector Expl anation ADVANCE DIRECTIVE 01/12/2022 9:56 AM Power of Structural Drafter-Medical * Full Code (Latest Code Status on File) Date Activated Date Inactivated Comments 12/15/2021 1:49 AM 12/16/2021 5:54 PM Care Teams Accountant Auditor Relationship Specialty Start Date End Date Ranjeet Quezada MD [address] [place] [address] PCP - General 08/12/17 Ramiro Alvarez MD [address] [place] [address] Consulting Physician Cardiology 01/13/22
--- OUTSIDE RECORDS SUMMARY | 2025-02-18 15:35 | XMS_ITS | Clinical Summary ---
Author Organization [facility] Address [address] [place] [id number] Care Team Providers Care Insulation Worker Interior Surface Name Role Phone Ranjeet Quezada MD Primary Care Provider [phone] Ramiro Alvarez MD Unavailable [phone] Allergies Active Allergy Reactions Criticality Noted Date [...] mouth daily 30 capsule 11 2 Active [id number] (Krill Oil, [place] 3 and 6,) 1000-130(40-80) mg capsule Take [...] How often do you attend chur or jew services? More than 4 times per year 12/15/2021 Do you belong to any clubs o r organizations such as judaism groups, unions, fraternal or athletic groups, or [...] on file Legal Sex Female 12:49 PM NETWORK CABLER Gender Identity Female 11/22/2023 12:00 PM CDT Sexual Orientation Not on file Obstetrics History Last Filed Vital Signs Vital Sign Reading Time Taken Comments Blood Pressure 131/80 08/28/2022 2:18 PM NETWORK CABLER Pulse 82 08/28/2022 2:18 PM NETWORK CABLER Temperature 36.7 C (98 F) 08/28/2022 2:18 PM NETWORK CABLER Respiratory Rate 18 08/28/2022 2:18 PM NETWORK CABLER Oxygen Saturation 94% 08/28/2022 2:18 PM NETWORK CABLER Inhaled Oxygen Concentration - - Weight 109.5 kg (241 lb 8 oz) 08/28/2022 2:18 PM NETWORK CABLER Height 165.1 cm (5' 5) 08/28/2022 2:18 PM NETWORK CABLER Body Mass Index 40.19 08/28/2022 2:18 PM NETWORK CABLER Plan of Treatment Health Maintenance Due Date Last Done Comments Colon Cancer Screening-Colonoscopy 1955 Depression Screening 1955 Hepatitis C Screening 1955 Hepatitis B Screening 1973 Well Visit 65+ 2020 DTaP/Tdap/Td Vaccine (2 - Tdap) 11/18/2022 3 Fall Risk Assessment 01/13/2023 01/13/2022 Covid-19 Vaccine (2023-2 5 season) 2024 11/24/2021, 06/14/2021, 11/02/2020, Additional history exists Osteoporosis Screening-Bone Density Scan 08/09/2024 08/09/2022, 08/20/2019, 07/11/2017, Additional history exists Influenza Vaccine (Season Ended) 2025 04/06/2021, 2020, 05/05/2019, Additional history exists Breast Cancer Screening-Mammogram 08/28/2025 08/28/2024, 08/14/2023, 08/09/2022, Additional history exists Zoster Vaccine Completed 07/17/2019, 04/14, 11/18/2012 Pneumococcal vaccine 65+ Completed 022, 04/12/2021, 2020, Additional history exists Procedures Procedure Name Priority Date/Time Associated Diagnosis Comments SCREENING MAMMOGRAM BILATERAL W STEFANO Schedule Routine, Read Routine (OP Routine) 08/28/2024 11:16 AM NETWORK CABLER Screening mammogram, encounter for DEXA AXIAL SKELETON BONE DENSITY 1 OR MORE SITES Schedule Routine, Read Routine (OP Routine) 08/09/2022 11:12 AM NETWORK CABLER Asymptomatic menopausal state from Last 3 Months or Most Recently Relevant to Health Maintenance Results * Screening Mammogram Bilateral W Stefano (08/28/2024 11:16 AM NETWORK CABLER) Anatomical Region Laterality Modality Breast Bilateral Mammography Narrative 08/28/2024 12:15 PM NETWORK CABLER Examination: Screening Mammogram Bilateral W Stefano: 08/28/24 [...] 1 or 2 Site (08/09/2022 11:12 AM NETWORK CABLER) Anatomical Region Laterality Modality Body N/A Digital Radiogra phy 08/09/2022 11:4 9 AM NETWORK CABLER Impressions 08/09/2022 11:49 AM NETWORK CABLER Low bone mass (osteopenia) which depending on the clinical circumstances may result in a moderate increased risk of fragility fracture. If followup is to be done, for technical reasons, it should be performed on this same machine. Electronically signed by: Jun Alicia M.D. Narrative 08/09/2022 11:49 AM NETWORK CABLER EXAM: Bone mineral density examination HISTORY: Postmenopausal female. DXA BMD was done at [facility] on a [employer] W. Precision testing at this site is [...] Postmenopausal female. DXA BMD was done at [facility] on a [employer] W. Precision testing at this site is [...] by: Jun Alicia M.D. Matt Marquis MD [facility] [place] Final Re sult from Last 3 Months or Most Recently Relevant to Health Maintenance Insurance [employer] [facility] Address: [address] [address] [place] [address] [facility] Address: [address] [address] [place] [address] [facility] Address: [facility] [address] [place] [address] Advance Directives For more information, please contact: [phone] Documents on File Type Date Recorded Patient [employer] Technical Assistant Expl anation ADVANCE DIRECTIVE 01/12/2022 9:56 AM Power of Tablet Technician-Medical * Full Code (Latest Code Status on File) Date Activated Date Inactivated Comments 12/15/2021 1:49 AM 12/16/2021 5:54 PM Care Teams Insulation Worker Interior Surface Relationship Specialty Start Date End Date Ranjeet Quezada MD [address] [place] [address] PCP - General 08/12/17 Ramiro Alvarez MD [address] [place] [address] Consulting Physician Cardiology 01/13/22
[2025-02-18 15:57] LABS: Estimated Glomerular Filt Rate > 60
== END 2025-02-18 15:32 | disposition home or self-care (01) ==
PROVIDERS: PCP Internal Medicine; Visit Provider Internal Medicine
DX: R51.9 Headache, unspecified (principal)
CPT/HCPCS: 70470; Q9967

== ENCOUNTER 2025-03-09 09:16 | Outpatient (CLI) | payer MEDICARE, SELFPAY ==
--- NOTE | ~2025-03-09 | DEXA_ITS ---
Bone Density Report Name: CLARK PRIEST Age: 69 Sex: Female Ethnicity: White Date of : 1955 Indication: postmenopausal; screening for osteoporosis; prior fracture; Referring Provider: TRACIE GALVAN Study: Bone densitometry was performed. Exam Date: March 09, 2025 Accession number: [id number] Bone Density: Region BMD T-score Z-score Classification AP Spine(L1-L4) 0.902 -1.3 0.8 Osteopenia Femoral Neck (Left) 0.513 -3.0 -1.2 Osteoporosis Total Hip (Left) 0.878 -0.5 1.0 Normal Femoral Neck (Right) 0.536 -2.8 -1.0 Osteoporosis Total Hip (Right) 0.835 -0.9 0.6 Normal Total Hip Mean 0.856 -0.7 0.8 Normal World Health Organization criteria for BMD impression classify patients as: Normal (T-score at or above -1.0), Osteopenia (T-score between -1.0 and -2.5), or Osteoporosis (T-score at or below -2.5). 10-year Fracture Risk: FRAX not reported because: Some T-score for Spine Total or Hip Total or Femoral Neck at or below -2.5 Treated for osteoporosis Clinical Information Provided by Patient: Has had a low trauma fracture Is being treated for osteoporosis Has used the following medications: Boniva (i.e. ibandronate), Vitamin D, Calcium Patient maximum height was 63 Menopause Age: 52 No regular weight bearing exercise Onset of menses at age 12 Number of children 1 Impression: The patient has established osteoporosis, based on the Left Femoral Neck T-score and the existence of a prior fracture. The patient has risk factors, including: previous fracture. Discussion: It is important to ask patients whether they are taking their medications and to encourage continued and appropriate compliance with their osteoporosis therapies to reduce fracture risk. It is also important to review their risk factors and encourage appropriate calcium and vitamin D intakes, exercise, fall prevention and other lifestyle measures. Follow-Up: Consider a repeat BMD and Vertebral Fracture Assessment (VFA) exam in 2 years or sooner if medically necessary, to reassess this patient's status. Reported by: JACKIE on 03/09/2025 9:51:00 AM. Reviewed, dictated and finalized at location A.
== END 2025-03-09 09:17 | disposition home or self-care (01) ==
LOC: MICIMG 09:17
PROVIDERS: PCP Internal Medicine; Visit Provider Obstetrics & Gynecology
DX: Z78.0 Asymptomatic menopausal state (principal); M85.88 Other specified disorders of bone density and structure, other site; M81.0 Age-related osteoporosis without current pathological fracture
CPT/HCPCS: 77080

== ENCOUNTER 2025-06-29 10:47 | Outpatient (CLI) | payer MEDICARE, SELFPAY ==
--- NOTE | ~2025-06-29 | XR_ITS ---
XR lumbar spine min 4V Indication: M54.50 - Low back pain, unspecified Comparison: None Findings: The vertebral heights are intact. No fracture or subluxation. Severe loss of disc at L4-5 and L5-S1. Soft tissues unremarkable Impression: No acute abnormality. Reviewed, dictated and finalized at location P. TICE BILLING ASSOCIATE Impression: No acute abnormality.
--- NOTE | ~2025-06-29 | XR_ITS ---
EXAMINATION: XR hip LT min 2V, 06/29/2025 11:20 MANDARIN CHINESE TEACHER HISTORY: M54.50 - Low back pain, unspecified COMPARISON: No comparisons available. Findings: No acute fracture or malalignment. No significant degenerative changes. Soft tissues unremarkable. Impression: No acute fracture or malalignment. Reviewed, dictated and finalized at location P. ARIN CHINESE TEACHER Impression: No acute fracture or malalignment.
--- NOTE | ~2025-06-29 | XR_ITS ---
EXAMINATION: XR sacroiliac joints min 3V, 06/29/2025 11:20 SKIN WASHER HISTORY: M54.50 - Low back pain, unspecified COMPARISON: No comparisons available. Findings: No acute fracture or malalignment. No significant degenerative changes. Soft tissues unremarkable. Impression: No acute fracture or malalignment. Reviewed, dictated and finalized at location P. WASHER Impression: No acute fracture or malalignment.
== END 2025-06-29 10:48 | disposition home or self-care (01) ==
PROVIDERS: PCP Internal Medicine; Visit Provider Internal Medicine
DX: M54.50 Low back pain, unspecified (principal); M25.552 Pain in left hip; M54.10 Radiculopathy, site unspecified
CPT/HCPCS: 72110; 72202; 73502